=== PATIENT | male | born 1960 | race Caucasian/White ===

== ENCOUNTER → 2021-12-15 13:20 | Outpatient (BNVA) | payer BC, SELFPAY | PROVIDERS: PCP Pediatrics; Visit Provider Urology | DX: E11.69 Type 2 diabetes mellitus with other specified complication (principal); N52.1 Erectile dysfunction due to diseases classified elsewhere; N20.0 Calculus of kidney | CPT/HCPCS: 51798 ==

== ENCOUNTER 2022-06-03 13:58 | Outpatient (REF) | payer BC, SELFPAY ==
--- NOTE | ~2022-06-03 | US_ITS ---
EXAMINATION: US RETROPERITONEAL LIMITED (RENAL ONLY) CLINICAL INFORMATION: Calculus of kidney. COMPARISON: None TECHNIQUE: Real-time imaging of the kidneys. FINDINGS: RIGHT KIDNEY: 14.3 x 6.2 x 7.1 cm (SAG x AP x TRV). The kidney is normal in size, contour, and echogenicity. Renal cortical thickness is normal. No calculi or focal parenchymal lesions. No hydronephrosis. LEFT KIDNEY: 14.8 x 6.2 x 6.8 cm (SAG x AP x TRV). The kidney is normal in size, contour, and echogenicity. Renal cortical thickness is normal. No calculi or focal parenchymal lesions. No hydronephrosis. US/US renal BI IMPRESSION: Normal renal ultrasound.
== END 2022-06-03 13:59 | disposition home or self-care (01) ==
LOC: HO.HMGCX 13:58
PROVIDERS: Visit Provider Urology
DX: N20.0 Calculus of kidney (principal)
CPT/HCPCS: 76775

== ENCOUNTER 2023-07-28 16:32 | Outpatient (REF) | payer BC, SELFPAY ==
--- NOTE | ~2023-07-28 | US_ITS ---
EXAMINATION: US RETROPERITONEAL LIMITED (RENAL ONLY) CLINICAL INFORMATION: Renal stones. COMPARISON: Renal ultrasound 06/03/2022 TECHNIQUE: Real-time imaging of the kidneys. FINDINGS: RIGHT KIDNEY: 13.7 x 5.6 x 6.1 cm (SAG x AP x TRV). The kidney is normal in size, contour, and echogenicity. Renal cortical thickness is normal. No calculi or focal parenchymal lesions. No hydronephrosis. LEFT KIDNEY: 13.7 x 6.2 x 6.1 cm (SAG x AP x TRV). The kidney is normal in size, contour, and echogenicity. Renal cortical thickness is normal. No calculi or focal parenchymal lesions. No hydronephrosis. US/US renal BI IMPRESSION: Normal renal ultrasound. No visible nephrolithiasis. No hydronephrosis.
== END 2023-07-28 16:33 | disposition home or self-care (01) ==
LOC: HO.US 16:32
PROVIDERS: PCP Internal Medicine; Visit Provider Urology
DX: N20.0 Calculus of kidney (principal)
CPT/HCPCS: 76775

== ENCOUNTER 2023-08-22 14:11 | Outpatient (REF) | payer BC, SELFPAY ==
[2023-08-22 16:49] LABS: Appearance Urine Turbid; Color Urine Yellow; Glucose Urine UA Negative (Negative); Leukocyte Esterase Urine Negative (Negative); Nitrite Urine Negative (Negative); Urine Blood Negative (Negative); Urine Ketones Trace mg/dL (Negative); Urine Protein Negative (Neg-Trace)
[2023-08-22 16:55] LABS: Bacteria Urine None Seen (None Seen); Hyaline Casts Urine 0-2 /LPF (0-2); RBC Urine 0-2 /HPF (0-2); Squamous Epithelial Cell Urine 0-2 /HPF (0-2); WBC Urine 0-5 /HPF (0-5)
== END 2023-08-22 14:12 | disposition home or self-care (01) ==
LOC: HO.HMGCLDS 14:11
PROVIDERS: PCP Internal Medicine; Visit Provider Urology
DX: N20.0 Calculus of kidney (principal)
CPT/HCPCS: 81001; 87086

== ENCOUNTER 2023-11-03 15:45 | Outpatient (AMB) | payer BC, SELFPAY ==
--- NOTE | 2023-11-03 15:46 | A.OFFVIS_ITS ---
Intake Intake Visit Reasons: US/PSA Follow Up([place] ) Intake Note: Patient presents today for a follow-up Meds- Tadalafil Allergies to Antibiotic- No Known Allergies Blood Thinner- None Medical Concierge Required: No Allergies No Known Allergies [No Known Allergies*] Allergy (Verified 11/03/23 15:47) Medication List - Last Reconciled 11/03/23 by Martin Mckenzie MD blood sugar diagnostic ([place] [employer] Ultra Test strips) As directed dulaglutide (Trulicity) mg subcut lisinopril 10 mg PO DAILY multivitamin (Multiple Vitamins tablet) 1 tab PO QAM pravastatin 20 mg PO DAILY tadalafil (Cialis) 5 mg PO DAILY 90 days HPI HPI Comments History of Present Illness Details Colt ALBA is a very pleasant male. They are a patient of Dr Martin?. They are seen in the office today for the following urologic conditions. - nephrolithiasis - erectile dysfunction Telemedicine Evaluation 15 min Consultation [place] [facility] Video attempted Ultrasound shows no stones Does have reasonable response to Cialis 5 mg for urinating Is noticing some postvoid dribbling and hesitancy at the end of urination Should this progress may need addition of alpha-jagdeep ?He has a complicated medical history. ?March 2013 underwent left hydrocele repair. Bladder was inadvertently incised. Spent the next 6-8 weeks with infection and bladder repair. Left inguinal hernia repair. Erectile dysfunction Responsive to 5 mg daily tadalafil Nephrolithiasis/Urolithiasis:? They are here for?further evaluation of nephrolithiasis.? Urolithiasis was diagnosed?02/05/18 - seen [place] [facility] [place] flank pain and heamturia - imaging had passed small stone.? The patient previously had kidney stones whose composition w?unknown ? 24 Hour urine evaluation?03/28 , Good Volume > 2.00 L, Hypercalciuria (> 200mg), High Sodium (> 100mEq), High oxalate > 30mg, High Citrate, Low urine pH < 5.5 ?03/29 , Good Volume > 2.00 L, high calcium and high oxalate - drinking iced tea ? Prior treatment(s) include?observation.? Prior imaging includes?01/26 , a CT (computed tomography) scan of the abdomen/pelvis (stone protocol), showing no evidence of stones - recent passage ?03/28 , a renal ultrasound, showing no evidence of stones - 07/02 renal ultrasound no stones, 08/03 no stones ? Current therapeutic plan will be?Multiple urinary abnormalities ?, to continue with imaging surveillance, ?General advice to maintain good fluid intake for urine greater than 1.5 L per day, reduce salt and reduce protein and acid loads was provided [facility] Medical History High cholesterol HTN (hypertension) Diabetes mellitus Erectile dysfunction due to diseases classified elsewhere Hypercalciuria Incomplete emptying of bladder Retrograde ejaculation Nontraumatic rupture of bladder Ureteral reimplantation hemorrhage Hydrocele in adult Hematuria Surgical History History of surgery Review of Systems Const All systems reviewed & are unremarkable except as noted in HPI and below Reports no additional complaints Resp Reports no additional complaints GI Reports no additional complaints Reports as per HPI Musc Reports no additional complaints Physical Exam Telemedicine evaluation Appropriate responses Regular breathing rate and rhythm HEENT Head: Yes normal to inspection Ears: hearing grossly normal bilaterally Eyes General: appearance normal, both eyes and all related structures Neck Neck: Yes normal visual inspection Chest Chest palpation & inspection: normal inspection of the chest Resp Effort & Inspection: normal respiratory effort and able to speak in complete sentences Assessment & Plan Assessment & Plan (1) Bladder outlet obstruction: Code(s): N32.0 - Bladder-neck obstruction (2) Erectile dysfunction associated with type 2 diabetes mellitus: Code(s): E11.69 - Type 2 diabetes mellitus with other specified complication; N52.1 - Erectile dysfunction due to diseases classified elsewhere Plan Six-month follow-up PVR Patient Instructions: Imaging studies, laboratory and physical exam results were discussed and reviewed in detail. No major barriers to patient understanding were identified. An opportunity to ask questions regarding the treatment plan was provided. All questions were answered. The patient expressed understanding and agreement with the above treatment plan. The patient is aware they should contact our office by phone for worsening of their current condition or the appearance of new urologic symptoms. Compliance is encouraged with any medications and followup testing that is ordered. It is a privilege to participate in the urologic care of your patient. If you have any questions or concerns regarding treatment for the above conditions, or other urologic issues, please do not hesitate to contact me. The office telephone contact is [phone]. This note is constructed using voice recognition software. While every effort has been made to ensure accuracy psychologist personnel errors may have been included. Yours sincerely, Dr Martin Mckenzie MD, [facility] - Urology Providers of Expert, Compassionate Care for the Genitourinary System Telehealth Telehealth Location of provider rendering services: practice address Location of patient: address on file Patient Identification confirmed using: Name, : Yes Telehealth method: video Patient verbally consented to treatment: Yes Patient verbally consented to billing insurance company: Yes Patient informed of any privacy concerns related to visit: Yes Coding Level of Care Code Tele Est Pt Level 3 (47057) Diagnoses Bladder outlet obstruction N32.0 Erectile dysfunction associated with type 2 diabetes mellitus E11.69; N52.1
== END 2023-11-03 16:04 | disposition home or self-care (01) ==
LOC: HO.HUSH 15:45
PROVIDERS: PCP Internal Medicine; Visit Provider Urology
DX: N32.0 Bladder-neck obstruction (principal); E11.69 Type 2 diabetes mellitus with other specified complication; N52.1 Erectile dysfunction due to diseases classified elsewhere
CPT/HCPCS: 99213

== ENCOUNTER → 2023-11-03 15:45 | Outpatient (BNVA) | payer BC, SELFPAY | PROVIDERS: PCP Internal Medicine; Visit Provider Urology ==

== ENCOUNTER 2024-05-03 14:33 | Outpatient (AMB) | payer BC, SELFPAY ==
--- NOTE | 2024-05-03 14:35 | A.OFFVIS_ITS ---
Intake Visit Reasons: 6M Follow Up-PVR Intake Note: Patient presents today for a 6m follow-up pvr Meds- Tadalafil Allergies to Antibiotic- No Known Allergies Blood Thinner- None today's pvr:0ml's New Car Inspector Required: No Allergies No Known Allergies [No Known Allergies*] Allergy (Verified 05/03/24 14:35) Medication List - Last Reconciled 05/03/24 by Martin Mckenzie MD alfuzosin ER 10 mg PO BEDTIME 30 days blood sugar diagnostic ([employer] Ultra Test strips) As directed dulaglutide (Trulicity) mg subcut lisinopril 10 mg PO DAILY multivitamin (Multiple Vitamins tablet) 1 tab PO QAM pravastatin 20 mg PO DAILY tadalafil (Cialis) 5 mg PO DAILY 90 days HPI Comments Details: Colt ALBA is a very pleasant male. They are a patient of Dr Martin?. They are seen in the office today for the following urologic conditions. - nephrolithiasis - erectile dysfunction Six-month follow-up Does have reasonable response to Cialis 5 mg for urinating Is noticing some postvoid dribbling and hesitancy at the end of urination Reporting urinary hesitancy with weakness of stream Trial alfuzosin ?He has a complicated medical history. ?March 2013 underwent left hydrocele repair. Bladder was inadvertently incised. Spent the next 6-8 weeks with infection and bladder repair. Left inguinal hernia repair. Erectile dysfunction Responsive to 5 mg daily tadalafil Nephrolithiasis/Urolithiasis:? They are here for?further evaluation of nephrolithiasis.? Urolithiasis was diagnosed?02/05/18 - seen at [facility] [place] with left flank pain and heamturia - imaging had passed small stone.? The patient previously had kidney stones whose composition w?unknown ? 24 Hour urine evaluation?03/28 , Good Volume > 2.00 L, Hypercalciuria (> 200mg), High Sodium (> 100mEq), High oxalate > 30mg, High Citrate, Low urine pH < 5.5 ?03/29 , Good Volume > 2.00 L, high calcium and high oxalate - drinking iced tea ? Prior treatment(s) include?observation.? Prior imaging includes?01/26 , a CT (computed tomography) scan of the abdomen/pelvis (stone protocol), showing no evidence of stones - recent passage ?03/28 , a renal ultrasound, showing no evidence of stones - 07/02 renal ultrasound no stones, 08/03 no stones ? Current therapeutic plan will be?Multiple urinary abnormalities ?, to continue with imaging surveillance, ?General advice to maintain good fluid intake for urine greater than 1.5 L per day, reduce salt and reduce protein and acid loads was provided [facility] Medical History High cholesterol HTN (hypertension) Diabetes mellitus Erectile dysfunction due to diseases classified elsewhere Hypercalciuria Incomplete emptying of bladder Retrograde ejaculation Nontraumatic rupture of bladder Ureteral reimplantation hemorrhage Hydrocele in adult Hematuria Surgical History History of surgery Review of Systems Const Denies chills and Denies fever(s) Card Reports no additional complaints and Denies syncope Resp Denies cough GI Denies abdominal pain and Denies heartburn Reports as per HPI and Denies change in libido Neuro Denies syncope Psych Denies change in libido Endo Denies change in libido Physical Exam Const General: cooperative, healthy appearing, comfortable and no acute distress Orientation/consciousness: patient oriented x3 HEENT Face and sinus: Yes normal facial exam Mouth: moist mucous membranes Neck Neck: Yes normal visual inspection, Yes full ROM and Yes trachea midline Chest Chest palpation & inspection: normal inspection of the chest Resp Effort & Inspection: normal respiratory effort, able to speak in complete sentences and no respiratory distress GI Inspection: Yes normal to inspection Back/Spine/Pelvis Cervical Spine: normal cervical lordosis Thoracic/Lumbar Spine: thoracic and lumbar spine normal to inspection Skin General skin exam: no rashes or lesions noted Neuro General: patient oriented x3, gait normal, tone normal and moves all extremities Extrem General: Yes normal to inspection and Yes capillary refill normal Office Procedures Post Void Residual Post Residual Void Post Void Residual (PVR): 0 12665-Ftad Void Residual by ultrasound Results AMB Urinalysis, Automated UA Leukoctes 0 Billie/uL Last Edit by ELIZABET Motta on 05/03/24 14:48 UA Nitrite Negative Last Edit by Ele Diane [facility] on 05/03/24 14:48 UA Urobilinogen 0.2 mg/dL Last Edit by Ele Diane [facility] on 05/03/24 14:4 8 UA Protein 0 mg/dL Last Edit by Ele Diane [facility] on 05/03/24 14:48 UA pH 5.0 Last Edit by Ele Diane [facility] on 05/03/24 14:48 UA Blood 0 Mark/uL Last Edit by Ele Diane [facility] on 05/03/24 14:48 UA Specific [place] 1.025 Last Edit by Ele Diane [facility] on 05/03/24 14: 48 UA Ketone Negative Last Edit by ELIZABET Motta on 05/03/24 14:48 UA Bilirubin 0 mg/dL Last Edit by Ele Diane [facility] on 05/03/24 14:48 UA Glucose 0 mg/dL Last Edit by Ele Diane [facility] on 05/03/24 14:48 Results Reviewed Results Reviewed: Laboratory Last Values Urine pH (Auto) 5.0 05/03/24 14:47 Specific [place] (Auto) 1.025 05/03/24 14:47 Urine Protein (Auto) 0 mg/dL 05/03/24 14:47 Glucose (UA)(Auto) 0 mg/dL 05/03/24 14:47 Urine Ketones (Auto) Negative 05/03/24 14:47 Urine Blood (Auto) 0 Mark/uL 05/03/24 14:47 Urine Nitrite (Auto) Negative 05/03/24 14:47 Urine Bilirubin (Auto) 0 mg/dL 05/03/24 14:47 Urine Urobilinogen (Auto) 0.2 mg/dL 05/03/24 14:47 Leukocyte Esterase (Auto) 0 Billie/uL 05/03/24 14:47 Assessment & Plan Assessment & Plan (1) Bladder outlet obstruction: Code(s): N32.0 - Bladder-neck obstruction Category: Medical (2) Erectile dysfunction associated with type 2 diabetes mellitus: Code(s): E11.69 - Type 2 diabetes mellitus with other specified complication; N52.1 - Erectile dysfunction due to diseases classified elsewhere Category: Medical (3) Nephrolithiasis: Code(s): N20.0 - Calculus of kidney Category: Medical Plan Two month follow-up tele Trial alfuzosin Orders: Orders AMB Urinalysis Automated Today Z13.9 - Encounter for screening, unspecified Medications: New alfuzosin ER Take before bedtime 10 mg PO BEDTIME 30 days 30 tabs 1RF N32.0 - Bladder- neck obstruction, N40.1 - Benign prostatic hyperplasia with lower urinary tract symptoms, R33.9 - Retention of urine, unspecified, R35.1 - Nocturia, R39.12 - Poor urinary stream Patient Instructions: Imaging studies, laboratory and physical exam results were discussed and reviewed in detail. No major barriers to patient understanding were identified. An opportunity to ask questions regarding the treatment plan was provided. All questions were answered. The patient expressed understanding and agreement with the above treatment plan. The patient is aware they should contact our office by phone for worsening of their current condition or the appearance of new urologic symptoms. Compliance is encouraged with any medications and followup testing that is ordered. It is a privilege to participate in the urologic care of your patient. If you have any questions or concerns regarding treatment for the above conditions, or other urologic issues, please do not hesitate to contact me. The office telephone contact is [phone]. This note is constructed using voice recognition software. While every effort has been made to ensure accuracy microelectronics engineer errors may have been included. Yours sincerely, Dr Martin Mckenzie MD, [facility] - Urology Providers of Expert, Compassionate Care for the Genitourinary System Coding Level of Care Code Est Pt Level 4 (27046) Diagnoses Bladder outlet obstruction N32.0 Erectile dysfunction associated with type 2 diabetes mellitus E11.69; N52.1 Nephrolithiasis N20.0 CPT Codes Post Residual Void - PVR CPT Code: 53105-Iewi Void Residual by ultrasound ([id number])
== END 2024-05-03 15:11 | disposition home or self-care (01) ==
PROVIDERS: PCP Internal Medicine; Visit Provider Urology
DX: N32.0 Bladder-neck obstruction (principal); E11.69 Type 2 diabetes mellitus with other specified complication; N52.1 Erectile dysfunction due to diseases classified elsewhere; N20.0 Calculus of kidney; Z13.9 Encounter for screening, unspecified
CPT/HCPCS: 99214

== ENCOUNTER → 2024-05-03 14:33 | Outpatient (BNVA) | payer BC, SELFPAY | PROVIDERS: PCP Internal Medicine; Visit Provider Urology | DX: N32.0 Bladder-neck obstruction (principal); E11.69 Type 2 diabetes mellitus with other specified complication; N52.1 Erectile dysfunction due to diseases classified elsewhere; N20.0 Calculus of kidney | CPT/HCPCS: 51798; 81003 ==

== ENCOUNTER 2024-07-05 10:30 | Outpatient (AMB) | payer BC, SELFPAY ==
--- NOTE | 2024-07-05 10:34 | A.OFFVIS_ITS ---
Intake Visit Reasons: 2M Med review(alfuzosin) Intake Note: Patient is present for Med review Telephone follow up Urology Med: Alfuzosin, Tadalafil Antibiotic Allergy: None Blood Thinner: None Last PVR: 0ML Patient would like to discuss the medication Alfuzosin has started medications since prescribed last time Bushing Press Operator Required: No Accompanied by: Self / Same As Patient Allergies No Known Allergies [No Known Allergies*] Allergy (Verified 07/05/24 10:35) HPI Comments Details: Colt ALBA is a very pleasant male. They are a patient of Dr Martin?. They are seen in the office today for the following urologic conditions. - nephrolithiasis - erectile dysfunction - lower urinary tract symptoms Telemedicine Evaluation 15 min Consultation [employer] Sonu Video Two month follow-up trial alfuzosin Had reported some urinary hesitancy Reasonable prior response to Cialis 5 mg for stability Telemedicine Evaluation 15 min Consultation [employer] Sonu Video ?He has a complicated medical history. ?March 2013 underwent left hydrocele repair. Bladder was inadvertently incised. Spent the next 6-8 weeks with infection and bladder repair. Left inguinal hernia repair Lower urinary tract symptoms Urinary hesitancy with dribbling Erectile dysfunction Responsive to 5 mg daily tadalafil Nephrolithiasis/Urolithiasis:? They are here for?further evaluation of nephrolithiasis.? Urolithiasis was diagnosed?02/05/18 - seen at [facility] [place] with left flank pain and heamturia - imaging had passed small stone.? The patient previously had kidney stones whose composition w?unknown ? 24 Hour urine evaluation?03/28 , Good Volume > 2.00 L, Hypercalciuria (> 200mg), High Sodium (> 100mEq), High oxalate > 30mg, High Citrate, Low urine pH < 5.5 ?03/29 , Good Volume > 2.00 L, high calcium and high oxalate - drinking iced tea ? Prior treatment(s) include?observation.? Prior imaging includes?01/26 , a CT (computed tomography) scan of the abdomen/pelvis (stone protocol), showing no evidence of stones - recent passage ?03/28 , a renal ultrasound, showing no evidence of stones - 07/02 renal ultrasound no stones, 08/03 no stones ? Current therapeutic plan will be?Multiple urinary abnormalities ?, to continue with imaging surveillance, ?General advice to maintain good fluid intake for urine greater than 1.5 L per day, reduce salt and reduce protein and acid loads was provided [facility] Medical History High cholesterol HTN (hypertension) Diabetes mellitus Erectile dysfunction due to diseases classified elsewhere Hypercalciuria Incomplete emptying of bladder Retrograde ejaculation Nontraumatic rupture of bladder Ureteral reimplantation hemorrhage Hydrocele in adult Hematuria Surgical History History of surgery Review of Systems Const All systems reviewed & are unremarkable except as noted in HPI and below Reports no additional complaints Resp Reports no additional complaints GI Reports no additional complaints Reports as per HPI Musc Reports no additional complaints Physical Exam Telemedicine evaluation Appropriate responses Regular breathing rate and rhythm HEENT Head: Yes normal to inspection Ears: hearing grossly normal bilaterally Eyes General: appearance normal, both eyes and all related structures Neck Neck: Yes normal visual inspection Chest Chest palpation & inspection: normal inspection of the chest Resp Effort & Inspection: normal respiratory effort and able to speak in complete sentences Telehealth Telehealth Location of provider rendering services: practice address Location of patient: address on file Patient Identification confirmed using: Name, : Yes Telehealth method: video Patient verbally consented to treatment: Yes Patient verbally consented to billing insurance company: Yes Patient informed of any privacy concerns related to visit: Yes Assessment & Plan Assessment & Plan (1) Bladder instability: Code(s): N32.89 - Other specified disorders of bladder Category: Medical (2) Erectile dysfunction associated with type 2 diabetes mellitus: Code(s): E11.69 - Type 2 diabetes mellitus with other specified complication; N52.1 - Erectile dysfunction due to diseases classified elsewhere Category: Medical (3) Bladder outlet obstruction: Code(s): N32.0 - Bladder-neck obstruction Category: Medical Plan Two month follow-up tele Medications: New tolterodine ER 2 mg PO DAILY 30 days 30 caps 1RF N32.89 - Other specified disorders of bladder, R39.15 - Urgency of urination Patient Instructions: Imaging studies, laboratory and physical exam results were discussed and reviewed in detail. No major barriers to patient understanding were identified. An opportunity to ask questions regarding the treatment plan was provided. All questions were answered. The patient expressed understanding and agreement with the above treatment plan. The patient is aware they should contact our office by phone for worsening of their current condition or the appearance of new urologic symptoms. Compliance is encouraged with any medications and followup testing that is ordered. It is a privilege to participate in the urologic care of your patient. If you have any questions or concerns regarding treatment for the above conditions, or other urologic issues, please do not hesitate to contact me. The office telephone contact is [phone]. This note is constructed using voice recognition software. While every effort has been made to ensure accuracy foot piece assembler errors may have been included. Yours sincerely, Dr Martin Mckenzie MD, [facility] - Urology Providers of Expert, Compassionate Care for the Genitourinary System Coding Level of Care Code Tele Est Pt Level 4 (54635) Diagnoses Bladder instability N32.89 Erectile dysfunction associated with type 2 diabetes mellitus E11.69; N52.1 Bladder outlet obstruction N32.0
== END 2024-07-05 11:34 | disposition home or self-care (01) ==
LOC: HO.HUSH 10:30
PROVIDERS: PCP Internal Medicine; Visit Provider Urology
DX: N32.89 Other specified disorders of bladder (principal); E11.69 Type 2 diabetes mellitus with other specified complication; N52.1 Erectile dysfunction due to diseases classified elsewhere; N32.0 Bladder-neck obstruction
CPT/HCPCS: 99214

== ENCOUNTER → 2024-07-05 10:30 | Outpatient (BNVA) | payer BC, SELFPAY | PROVIDERS: PCP Internal Medicine; Visit Provider Urology ==

== ENCOUNTER 2024-09-03 13:35 | Outpatient (AMB) | payer BC, SELFPAY ==
--- NOTE | 2024-09-03 13:35 | MHC.OFFVIS ---
Intake Visit Reasons: 2M Med Review(tolterodine) Intake Note: Patient is present for 2M MED REVIEW Urology Medication:TADALAFIL,TOLTERODINE Antibiotic Allergy:NONE Blood Thinner:NONE Quantitative Manager Required: No Allergies No Known Allergies [No Known Allergies*] Allergy (Verified 09/03/24 13:36) HPI Comments Details: Colt ALBA is a very pleasant male. They are a patient of Dr Lopez. They are seen in the office today for the following urologic conditions. - nephrolithiasis - erectile dysfunction - lower urinary tract symptoms Telemedicine Evaluation 15 min Consultation [employer] Video Two month follow-up trial tolterodine for bladder stability - mild benefit - Will trial with high-dose Toviaz Reasonable prior response to Cialis 5 mg for stability ?He has a complicated medical history. ?March 2013 underwent left hydrocele repair. Bladder was inadvertently incised. Spent the next 6-8 weeks with infection and bladder repair. Left inguinal hernia repair Lower urinary tract symptoms Urinary hesitancy with dribbling Component of bladder instability with urinary urgency and frequency Erectile dysfunction Responsive to 5 mg daily tadalafil Nephrolithiasis/Urolithiasis:? They are here for?further evaluation of nephrolithiasis.? Urolithiasis was diagnosed?02/05/18 [place] [facility] [place] and heamturia - imaging had passed small stone.? The patient previously had kidney stones whose composition w?unknown ? 24 Hour urine evaluation?03/28 , Good Volume > 2.00 L, Hypercalciuria (> 200mg), High Sodium (> 100mEq), High oxalate > 30mg, High Citrate, Low urine pH < 5.5 ?03/29 , Good Volume > 2.00 L, high calcium and high oxalate - drinking iced tea ? Prior treatment(s) include?observation.? Prior imaging includes?01/26 , a CT (computed tomography) scan of the abdomen/pelvis (stone protocol), showing no evidence of stones - recent passage ?03/28 , a renal ultrasound, showing no evidence of stones - 07/02 renal ultrasound no stones, 08/03 no stones ? Current therapeutic plan will be?Multiple urinary abnormalities ?, to continue with imaging surveillance, ?General advice to maintain good fluid intake for urine greater than 1.5 L per day, reduce salt and reduce protein and acid loads was provided [facility] Medical History High cholesterol HTN (hypertension) Diabetes mellitus Erectile dysfunction due to diseases classified elsewhere Hypercalciuria Incomplete emptying of bladder Retrograde ejaculation Nontraumatic rupture of bladder Ureteral reimplantation hemorrhage Hydrocele in adult Hematuria Surgical History History of surgery Review of Systems Const All systems reviewed & are unremarkable except as noted in HPI and below Reports no additional complaints Resp Reports no additional complaints GI Reports no additional complaints Reports as per HPI Musc Reports no additional complaints Physical Exam Telemedicine evaluation Appropriate responses Regular breathing rate and rhythm HEENT Head: Yes normal to inspection Ears: hearing grossly normal bilaterally Eyes General: appearance normal, both eyes and all related structures Neck Neck: Yes normal visual inspection Chest Chest palpation & inspection: normal inspection of the chest Resp Effort & Inspection: normal respiratory effort and able to speak in complete sentences Telehealth Telehealth Telehealth Platform: [employer] [facility] Location of provider rendering services: practice address Location of patient: address on file Patient Identification confirmed using: Name, : Yes Telehealth method: video Patient verbally consented to treatment: Yes Patient verbally consented to billing insurance company: Yes Patient informed of any privacy concerns related to visit: Yes Minutes spent on Phone/Video with Pt.: 15 Assessment & Plan Assessment & Plan (1) Nephrolithiasis: Code(s): N20.0 - Calculus of kidney Category: Medical (2) Erectile dysfunction associated with type 2 diabetes mellitus: Code(s): E11.69 - Type 2 diabetes mellitus with other specified complication; N52.1 - Erectile dysfunction due to diseases classified elsewhere Category: Medical (3) Bladder instability: Code(s): N32.89 - Other specified disorders of bladder Category: Medical Plan Trial 8 mg Toviaz Medications: Changed From tolterodine ER 2 mg PO DAILY 30 days 30 caps 1RF To fesoterodine ER 8 mg PO DAILY 30 days 30 tabs 1RF Patient Instructions: Imaging studies, laboratory and physical exam results were discussed and reviewed in detail. No major barriers to patient understanding were identified. An opportunity to ask questions regarding the treatment plan was provided. All questions were answered. The patient expressed understanding and agreement with the above treatment plan. The patient is aware they should contact our office by phone for worsening of their current condition or the appearance of new urologic symptoms. Compliance is encouraged with any medications and followup testing that is ordered. It is a privilege to participate in the urologic care of your patient. If you have any questions or concerns regarding treatment for the above conditions, or other urologic issues, please do not hesitate to contact me. The office telephone contact is [phone]. This note is constructed using voice recognition software. While every effort has been made to ensure accuracy game developer errors may have been included. Yours sincerely, Dr Martin Mckenzie MD, [facility] - Urology Providers of Expert, Compassionate Care for the Genitourinary System Coding Level of Care Code Tele Est Pt Level 4 (32938) Diagnoses Nephrolithiasis N20.0 Erectile dysfunction associated with type 2 diabetes mellitus E11.69; N52.1 Bladder instability N32.89
--- OUTSIDE RECORDS SUMMARY | 2024-09-03 13:37 | XMS_ITS ---
Author Organization [facility] Address [address] [place] [address] Care Team Providers Care Grain Elevator Superintendent Name Role Phone CRISTIN RAMIREZ Unavailable SHUKRI KAT Unavailable [phone] Encounters Encounter Location Date Provider Diagnosis [facility] [address] [place] [address] 11/10/2023 SHUKRI KAT PLAN OF TREATMENT No Information Progress Notes * Guy ALBAGabrielOB:1960 ([age] yo M)Acc No.[id number]:11/10/2023 Patient:??Colt ALBA Provider:??SHUKRI KAT PA-C :1960?Age:63 Y?Sex:Toby jose Date:11/10/2023 Address:[address] [place], [place] [id number] Subjective: * Chief Complaints: * ? * Medical History:?? Objective: Assessment: Plan: * Treatment: * Images: Billing Information: * Visit Code:?? * Procedure Codes:?? * Sign off status: Pending * Provider:??SHUKRI KAT PA-C Date:??0309/2023
--- OUTSIDE RECORDS SUMMARY | 2024-09-03 13:37 | XMS_ITS ---
Author Organization [facility] Address [address] [place] [address] Care Team Providers Care Lighting Director Name Role Phone CRISTIN RAMIREZ Unavailable [phone] SHUKRI KAT Unavailable [phone] Encounters Encounter Location Date Provider Diagnosis [facility] [address] [place] [address] 02/23/2024 SHUKRI KAT PLAN OF TREATMENT No Information Progress Notes * Guy ALBAGabrielOB:1960 ([age] yo M)Acc No.[id number]:02/23/2024 Patient:??Colt ALBA Provider:??SHUKRI KAT PA-C :1960?Age:63 Y?Sex:Toby jose Date:02/23/2024 Address:[address] [place], [place] [id number] Subjective: * Chief Complaints: * ? * Medical History:?? Objective: Assessment: Plan: * Treatment: * Images: Billing Information: * Visit Code:?? * Procedure Codes:?? * Sign off status: Pending * Provider:??SHUKRI KAT PA-C Date:??02/09
--- OUTSIDE RECORDS SUMMARY | 2024-09-03 13:37 | XMS_ITS ---
Author Organization [facility] Address [address] [place] [address] Care Team Providers Care Tablet Repair Name Role Phone AUSTYN DESTINEY CRISTIN Unavailable [phone] SHUKRI KAT Unavailable [phone] ALLERGIES No Known Allergies REASON FOR VISIT Pt presents for wt mgt follow up, pt has gained weight MEDICATIONS Medication SIG (Take, Route, Frequency, Duration) Notes Start Date End Date Status Lisinopril 10 MG Oral for 90 Days Active Pravastatin Sodium 20 MG Oral for 90 Days Active Tadalafil 5 MG TAKE ONE TABLET BY M OUTH EVERY DAY Oral for 90 Days PRN Activ e Mounjaro 5 MG/0.5ML as directed Subcutan eous weekly Active Fish Oil Active Vitamin D3 50 MCG (1999) 2 tablets Orally Once a day Active Probiotic 250 MG as directed Orally Active SOCIAL HISTORY Tobacco Use: Social History Observation Description Date Details (start date - stop date) Current Smoker NA - NA Sex Assigned At : Social History Observation Description Sex Assigned At Unknown Tobacco Use/Smoking Question Answer Notes Are you a current smoker How often do you smoke cigarettes? every day How many cigarettes a day do you smoke? 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 [address] [place] [address] 12/22/2023 SHUKRI KAT Obesity (BMI 30-39.9 ) E66.9 ; BMI 36.0-36.9,adult Z68.36 ; Hypertension, essential I10 ; Type 2 diabetes mellitus without complications E11.9 and Umbilical hernia without mention of obstruction or gangrene K42.9 ASSESSMENTS Encounter Date Diagnosis Assessment Notes Treatment Notes Treatment Clinical Notes Section Notes 12/22/2023 Obesity (BMI 30-39.9) (ICD-10 - E66.9) Jesus is a 63-year-old male who presents the office for weight management follow-up. 09/23/2023: Weight 266, BMI 37.1 01/21/24: Weight 263, BMI 36.68. Losing some weight, following with his PCP for diabetes, we recommend he switch from Trulicity to Mounjaro, he did so, but preferred that his primary care prescribed medication. Primary care does prescribe the medication 5 mg, although patient has finished 4 weeks, he has a 3-month supply. Would like to see his back in 2 months. Discussed extensively lifestyle modifications including sleep, stress, hormones, exercise, nutrition. Patient states that he is trying to work on cutting sugars, but exercise is limited because of his neuropathy/arthritis . Discussed swimming, Pilates, yoga, stretching, patient states that he is not going to be doing this. Patient request follow-up in 2 months, we will see him then, sooner as needed. Continue following with PCP for care all quetsions answered to patients satisfaction. Patient verbalized understanding of diagnosis and treatments explained. To call sooner prior to next visit it any questions/concerns arise. Time 7 patient 30 minutes with greater than 50% of patient education and care coronation Case discussed with collaborating physician Mack Aguirre who reviewed the assessment and plan. Chart, medications, labs, vital signs reviewed. Dictation was accomplished with the use of [employer] voice recognition software, prone to medical misidentifications and grammatical errors. This is unintentional and the practitioner does try to identify and correct these, but some could still be present. Please do not hesitate to contact practitioner for clarification. 12/22/2023 BMI 36.0-36.9,adult (ICD-10 - Z68.36) Jesus is a 63-year-old male who presents the office for weight management follow-up. 09/23/2023: Weight 266, BMI 37.1 01/21/24: Weight 263, BMI 36.68. Losing some weight, following with his PCP for diabetes, we recommend he switch from Trulicity to Mounjaro, he did so, but preferred that his primary care prescribed medication. Primary care does prescribe the medication 5 mg, although patient has finished 4 weeks, he has a 3-month supply. Would like to see his back in 2 months. Discussed extensively lifestyle modifications including sleep, stress, hormones, exercise, nutrition. Patient states that he is trying to work on cutting sugars, but exercise is limited because of his neuropathy/arthritis . Discussed swimming, Pilates, yoga, stretching, patient states that he is not going to be doing this. Patient request follow-up in 2 months, we will see him then, sooner as needed. Continue following with PCP for care all quetsions answered to patients satisfaction. Patient verbalized understanding of diagnosis and treatments explained. To call sooner prior to next visit it any questions/concerns arise. Time 7 patient 30 minutes with greater than 50% of patient education and care coronation Case discussed with collaborating physician Mack Aguirre who reviewed the assessment and plan. Chart, medications, labs, vital signs reviewed. Dictation was accomplished with the use of [employer] voice recognition software, prone to medical misidentifications and grammatical errors. This is unintentional and the practitioner does try to identify and correct these, but some could still be present. Please do not hesitate to contact practitioner for clarification. 12/22/2023 Hypertension, essential (ICD-10 - I10) Jesus is a 63-year-old male who presents the office for weight management follow-up. 09/23/2023: Weight 266, BMI 37.1 01/21/24: Weight 263, BMI 36.68. Losing some weight, following with his PCP for diabetes, we recommend he switch from Trulicity to Mounjaro, he did so, but preferred that his primary care prescribed medication. Primary care does prescribe the medication 5 mg, although patient has finished 4 weeks, he has a 3-month supply. Would like to see his back in 2 months. Discussed extensively lifestyle modifications including sleep, stress, hormones, exercise, nutrition. Patient states that he is trying to work on cutting sugars, but exercise is limited because of his neuropathy/arthritis . Discussed swimming, Pilates, yoga, stretching, patient states that he is not going to be doing this. Patient request follow-up in 2 months, we will see him then, sooner as needed. Continue following with PCP for care all quetsions answered to patients satisfaction. Patient verbalized understanding of diagnosis and treatments explained. To call sooner prior to next visit it any questions/concerns arise. Time 7 patient 30 minutes with greater than 50% of patient education and care coronation Case discussed with collaborating physician Mack Aguirre who reviewed the assessment and plan. Chart, medications, labs, vital signs reviewed. Dictation was accomplished with the use of [employer] voice recognition software, prone to medical misidentifications and grammatical errors. This is unintentional and the practitioner does try to identify and correct these, but some could still be present. Please do not hesitate to contact practitioner for clarification. 12/22/2023 Type 2 diabetes mellitus without complications (ICD-10 - E11.9) Jesus is a 63-year-old male who presents the office for weight management follow-up. 09/23/2023: Weight 266, BMI 37.1 01/21/24: Weight 263, BMI 36.68. Losing some weight, following with his PCP for diabetes, we recommend he switch from Trulicity to Mounjaro, he did so, but preferred that his primary care prescribed medication. Primary care does prescribe the medication 5 mg, although patient has finished 4 weeks, he has a 3-month supply. Would like to see his back in 2 months. Discussed extensively lifestyle modifications including sleep, stress, hormones, exercise, nutrition. Patient states that he is trying to work on cutting sugars, but exercise is limited because of his neuropathy/arthritis . Discussed swimming, Pilates, yoga, stretching, patient states that he is not going to be doing this. Patient request follow-up in 2 months, we will see him then, sooner as needed. Continue following with PCP for care all quetsions answered to patients satisfaction. Patient verbalized understanding of diagnosis and treatments explained. To call sooner prior to next visit it any questions/concerns arise. Time 7 patient 30 minutes with greater than 50% of patient education and care coronation Case discussed with collaborating physician Mack Aguirre who reviewed the assessment and plan. Chart, medications, labs, vital signs reviewed. Dictation was accomplished with the use of [employer] voice recognition software, prone to medical misidentifications and grammatical errors. This is unintentional and the practitioner does try to identify and correct these, but some could still be present. Please do not hesitate to contact practitioner for clarification. 12/22/2023 Umbilical hernia without mention of obstruction or gangrene (ICD-10 - K42.9) Jesus is a 63-year-old male who presents the office for weight management follow-up. 09/23/2023: Weight 266, BMI 37.1 01/21/24: Weight 263, BMI 36.68. Losing some weight, following with his PCP for diabetes, we recommend he switch from Trulicity to Mounjaro, he did so, but preferred that his primary care prescribed medication. Primary care does prescribe the medication 5 mg, although patient has finished 4 weeks, he has a 3-month supply. Would like to see his back in 2 months. Discussed extensively lifestyle modifications including sleep, stress, hormones, exercise, nutrition. Patient states that he is trying to work on cutting sugars, but exercise is limited because of his neuropathy/arthritis . Discussed swimming, Pilates, yoga, stretching, patient states that he is not going to be doing this. Patient request follow-up in 2 months, we will see him then, sooner as needed. Continue following with PCP for care all quetsions answered to patients satisfaction. Patient verbalized understanding of diagnosis and treatments explained. To call sooner prior to next visit it any questions/concerns arise. Time 7 patient 30 minutes with greater than 50% of patient education and care coronation Case discussed with collaborating physician Mack Aguirre who reviewed the assessment and plan. Chart, medications, labs, vital signs reviewed. Dictation was accomplished with the use of [employer] voice recognition software, prone to medical misidentifications and grammatical errors. This is unintentional and the practitioner does try to identify and correct these, but some could still be present. Please do not hesitate to contact practitioner for clarification. PLAN OF TREATMENT No Information Progress Notes * Norma ALBA:1960 ([age] yo M)Acc No.[id number]:12/22/2023 Patient:??Colt ALBA Provider:??SHUKRI KAT PA-C :1960?Age:63 Y?Sex:Toby jose Date:12/22/2023 Address:[address] [place] [address] [place], [id number] Subjective: * Chief Complaints: * ?1. Pt presents for wt mgt follow up, pt has gained weight. * HPI: ?Constitutional:? Colt is a 63 year old male with past medical history of high blood pressure, diabetes mellitus, kidney stones is presenting for weight loss managment follow up.shot of 5 mg and doing well.Patient initially established with nurse practitioner Nery Schilling, saw a nurse practitioner Kyler Cagle once, patient stopped Trulicity, started on Mounjaro by his primary care office, has been on 5 mg, doing his fourth injection today, but has a 3-month supply of it. Hemoglobin A1c last month was 6.4, improved from 6.7. Not noticing any appetite suppression. States that he is trying to eat better portions, but still eats sugar, and does not exercise at all because of his joint pain. States that he does not eat bread, potatoes, and rice but eats some Posta. But he has arthritis, neuropathy so there is no exercise. * ROS:?Constitutional: Patient denies any excessive fatigue with exercise, no weight loss, no fever, no night sweats, no changes in sleep. ???Eyes: No eye discharge, no itching, no redness, no vision changes. Advised the significance of regular eye exams to screen for glaucoma and other eye problems. ???Ear nose throat: No ear pain, No sore throat, no postnasal drip, no runny nose, no sneezing, no hearing changes ???Cardiovascular: No chest pain, no dyspnea on exertion, no PND, no orthopnea, no irregular pulse, no palpitations, no claudication, no diaphoresis, no claudication. ???Respiratory: No chronic cough, no hemoptysis, no sputum, no wheezing, no SOB, no pleuritic pain. ???GI: No diarrhea, no constipation, no blood in the stools, no pain associated with eating, no indigestion, no difficulty swallowing, no appetite change. ???Genitourinary: No painful urination, no hesitancy, no blood in the urine, no incontinence, no frequency, no urgency, no abnormal discharge. ???Musculoskeletal: No back pain, no joint pain, no limitations to walking and running, no joint deformity, no joint stiffness, no muscle weakness ???Integumentary: No new skin rash. No new changes in skin moles, no pruritis, no color change. ???Neurological: No history of seizures, no memory loss, no language dysfunction, no inability to concentrate, no localized weakness, no sensation loss, no confusion, no dizziness, no tremor, no numbness, no tingling. ???Psychiatric: no anxiety, no depression, no suicidal thoughts, feels safe at home. ???Endocrine: No polyuria, no polyphagia, no polydipsia. No heat/cold intolerance, no excesss thirst. ???Hematological: No easy bruising or bleeding, no lymph node swelling. * Medical History:??High blood pressure, Diabetes mellitus, Kidney stones. * Surgical History:??Denies Pa st Surgical History. * Hospitalization/Major Diagno stic Procedure:??Denies Past Hospitalization. * Family History:??Father: ali ve.??Mother: .??1 son(s) - healthy. .?? father has hx of liver issues 1 child. 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 * Medications:??Taking Mounjar o 5 MG/0.5ML Solution Pen-injector as directed Subcutaneous weekly , Taking Probiotic 250 MG Capsule as directed Orally , Taking Fish Oil , Taking Vitamin D3 50 MCG (2000 UT) Tablet Chewable 2 tablets Orally Once a day , Taking Lisinopril 10 MG Tablet Oral , Taking Pravastatin Sodium 20 MG Tablet Oral , Taking Tadalafil 5 MG Tablet TAKE ONE TABLET BY MOUTH EVERY DAY Oral , Notes to Pharmacist: PRN, Discontinued Trulicity 1.5 MG/0.5ML Solution Pen-injector Subcutaneous , Notes to Pharmacist: MONDAY, Medication List reviewed and reconciled with the patient * Allergies:??N.K.D.A. Objective: * Vitals:??HR:58/min, BP:132/8 4mm Hg, Wt:263lbs, BMI:36.68Index, Ht: 71 in, Oxygen sat %:94%. * Physical Examination:?General: Age appropriate 63 yo male, well appearing, no acute distress, speaking in full sentences without respiratory compromise. Well groomed, well developed. Alert, Interactive. ?Skin: Warm, dry and intact. No lesions/rashes/erythema. ? HEENT: Normocephalic/atraumatic. EOMI intact. PERRLA. Vision intact. No ptosis or lid lag. Nares without discharge or inflammation. ?Neck/Thyroid: Supple, with no lymphadenopathy. Full ROM. ?Lung: Clear to auscultation bilaterally, no wheezes, rales or rhonchi. No barrel chest. Equal chest rise and fall bilaterally. ?Cardiac: S1 and S2 appreciated. No murmurs/rubs or gallops. ?Abdomen: No visble masses. ? Extremities: Bilateral lower extremities with no edema. Equal tone bilaterally. ?MSK: Moving all four extremeties. ?Neuro: CN II-XI grossly intact. ?Psych: Stable mood and affect. Assessment: * Assessment: 1.??Obesity (BMI 30-39.9) - E66.9 (Primary)??2.??BMI 36.0-36.9,adult - Z68.36??3.??Hypertension, essential - I10??4.??Type 2 diabetes mellitus without complications - E11.9??5.??Umbilical hernia without mention of obstruction or gangrene - K42.9?? Jesus is a 63-year-old mal e who presents the office for weight management follow-up. 09/23/2023: Weight 266, BMI 37.1 01/21/24: Weight 263, BMI 36.68. Losing some weight, following with his PCP for diabetes, we recommend he switch from Trulicity to Mounjaro, he did so, but preferred that his primary care prescribed medication. Primary care does prescribe the medication 5 mg, although patient has finished 4 weeks, he has a 3-month supply. Would like to see his back in 2 months. Discussed extensively lifestyle modifications including sleep, stress, hormones, exercise, nutrition. Patient states that he is trying to work on cutting sugars, but exercise is limited because of his neuropathy/arthritis. Discussed swimming, Pilates, yoga, stretching, patient states that he is not going to be doing this. Patient request follow-up in 2 months, we will see him then, sooner as needed. Continue following with PCP for care all quetsions answered to patients satisfaction. Patient verbalized understanding of diagnosis and treatments explained. To call sooner prior to next visit it any questions/concerns arise. Time 7 patient 30 minutes with greater than 50% of patient education and care coronation Case discussed with collaborating physician Mack Aguirre who reviewed the assessment and plan. Chart, medications, labs, vital signs reviewed. Dictation was accomplished with the use of [employer] voice recognition software, prone to medical misidentifications and grammatical errors. This is unintentional and the practitioner does try to identify and correct these, but some could still be present. Please do not hesitate to contact practitioner for clarification. Plan: * Treatment: * Images: Billing Information: * Visit Code:?? 91227 Office Visit, Est Pt., Level 3. Modifiers: 25 * Procedure Codes:?? * Sign off status: Completed true * Provider:??SHUKRI KAT PA-C Date:??12/10 History and Physical Notes * HPI (History of Present Illness) Category Sub-Category Detail Notes Category Not es Constitutional Colt is a [age] year old male with past medical history of high blood pressure, diabetes mellitus, kidney stones is presenting for weight loss managment follow up.shot of 5 mg and doing well.Patient initially established with nurse practitioner Nery Schilling, saw a nurse practitioner Kyler Cagle once, patient stopped Trulicity, started on Mounjaro by his primary care office, has been on 5 mg, doing his fourth injection today, but has a 3-month supply of it. Hemoglobin A1c last month was 6.4, improved from 6.7. Not noticing any appetite suppression. States that he is trying to eat better portions, but still eats sugar, and does not exercise at all because of his joint pain. States that he does not eat bread, potatoes, and rice but eats some Posta. But he has arthritis, neuropathy so there is no exercise. Physical Examination Category Sub-Category Detail Notes Section Note s General: Age appropriate 63 yo male, well appearing, no acute distress, speaking in full sentences without respiratory compromise. Well groomed, well developed. Alert, Interactive. Skin: Warm, dry and intact. No lesions/rashes/erythema. HEENT: Normocephalic/atraumatic. EOMI intact. PERRLA. Vision intact. No ptosis or lid lag. Nares without discharge or inflammation. Neck/Thyroid: Supple, with no lymphadenopathy. Full ROM. Lung: Clear to auscultation bilaterally, no wheezes, rales or rhonchi. No barrel chest. Equal chest rise and fall bilaterally. Cardiac: S1 and S2 appreciated. No murmurs/rubs or gallops. Abdomen: No visble masses. Extremities: Bilateral lower extremities with no edema. Equal tone bilaterally. MSK: Moving all four extremeties. Neuro: CN II-XI grossly intact. Psych: Stable mood and affect.
--- OUTSIDE RECORDS SUMMARY | 2024-09-03 13:37 | XMS_ITS ---
[facility] Address [address] [place] [id number] Care Team Providers Care Insights Analyst Name Role Phone Mario Vega, Rojas Primary Care Provider Unavailable Virgen Solis [phone] Encounters Encounter Location Date Provider Diagnosis [address] [address] 10/27/2023 Virgen Solis Plan Of Treatment No Information Progress Notes * Colt ALBA MDOB:1960 (63 yo M)Acc No.[id number]:10/27/2023 Progress Notes Patient:?Colt ALBA Provider:?Virgen Solis DPM :1960???Age:62 Y???Sex:Male Joe e:10/27/2023 Address:[address] [place], [place] [id number] Pcp:Radhika Juarez Subjective: * Chief Complaints: * ??? * Medical History:? Objective: * Vitals:? Assessment: Plan: * Treatment: * Images: * The named appointment provid er may or may not be the originator of this progress note, and it is not deemed complete until electronically signed by the appointment provider. Sign off status: Pending * Provider:Mone Solis DPM Date:?2023 Generated for Madhu carlisle/Dmitry/Marlensmitting on:?09/03/2024 01:37 PM EST
--- OUTSIDE RECORDS SUMMARY | 2024-09-03 13:37 | XMS_ITS | Patient Health Record ---
Author Organization [facility] Address [address] [place] [address] Care Team Providers Care Insurance Claims Clerk Name Role Phone AUSTYN DESTINEYCRISTIN Unavailable [phone] NITESH GUSMAN Unavailable [phone] SHUKRI KAT Unavailable [phone] ALLERGIES No Known Allergies REASON FOR REFERRAL No Information MEDICATIONS Medication SIG (Take, Route, Frequency, Duration) Notes Start Date End Date Status Fish Oil Active Vitamin D3 50 MCG (1999) 2 tablets Orally Once a day Active Lisinopril 10 MG Oral for 90 Days Active Pravastatin Sodium 20 MG Oral for 90 Days Active Tadalafil 5 MG TAKE ONE TABLET BY M OUTH EVERY DAY Oral for 90 Days PRN Activ e Mounjaro 5 MG/0.5ML as directed Subcutan eous weekly Active Probiotic 250 MG as directed Orally [...] many cigarettes a day do you smoke? -30 Alcohol Screen (Audit-C) Question Answer Notes Did you have a drink containing alcohol in the p ast year? 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 processor smokes 1 pack a day for 20 years PROBLEMS Problem Type ICD Code Onset Dates Problem Status W/U Status Risk SNOMED Code Notes Problem Type 2 diabetes mellitus without complications (E11.9) Active confirmed Type II diabetes mellitus without complication (151790457) Problem Obesity (BMI 30-39.9) (E66.9) Active confirmed Obesity (998668203) Problem BMI 37.0-37.9, adult (Z68.37) Active confirmed Obese class I I (19725344877939 5) Problem Umbilical hernia without mention of obstruction or gangrene (K42.9) Active confirmed Umbilical hernia (972187649) Problem BMI 36.0-36.9,adult (Z68.36) Active confirmed [id number] Problem BMI 38.0-38.9,adult (Z68.38) Active confirmed Obese class II (03692213928802 5) Problem Hypertension, essential (I10) Active confirmed Essential hypertension (87845127) VITAL SIGNS Heart Rate 58 /min 12/22/2023 Oximetry 94 % 12/22/2023 Blood pressure diastolic 84 mm Hg 12/22/2023 Height 71 in 12/22/2023 Blood pressure systolic 132 mm Hg 12/22/2023 Weight 263 lbs 12/22/2023 BMI 36.68 kg/m2 12/22/2023 Encounters Encounter Location Date Provider Diagnosis [facility] [address] [place] [address] 11/10[facility] [address] [place] [address] 02/23/2024 SHUKRI SHEY [facility] [address] [place] [address] 09/23/2023 NITESH UZMA Obesity (BMI 30-39.9 ) E66.9 ; BMI 37.0-37.9, adult Z68.37 ; Hypertension, essential I10 ; Type 2 diabetes mellitus without complications E11.9 and Umbilical hernia without mention of obstruction or gangrene K42.9 [facility] [address] [place] [address] 12/22/2023 SHUKRI SHEY Obesity (BMI 30-39.9 ) E66.9 ; BMI 36.0-36.9,adult Z68.36 ; Hypertension, essential I10 ; Type 2 diabetes mellitus without complications E11.9 and Umbilical hernia without mention of obstruction or gangrene K42.9 ASSESSMENTS Encounter Date Diagnosis Assessment Notes Treatment Notes Treatment Clinical Notes Section Notes 09/23/2023 Obesity (BMI 30-39.9) (ICD-10 - E66.9) His diabetes is actually well-controlled with an A1c of 6.7 Discussed superior molecules including Ozempic and Mounjaro for not only diabetes management however for weight loss I highly encouraged him to start Mounjaro He will check with his insurance company and his primary care to see him back in the office for routine follow-up Total time spent today was 30 minutes of which greater than 50% was spent on coordinating and counseling We are a board certified obesity and weight management practice Patient has trialed behavioral modification, dietary restrictions and exercise for a minimum of 6 months The most recent [place] [employer] of clinical endocrinologists and [place] [employer]in[employer] guidelines recommend patients who have overweight BMI or obesity BMI, who also have metabolic syndrome, prediabetes, or at risk of developing type 2 diabetes should aim for a weight loss goal of at least 10% of the baseline body weight Patient counseled regarding effects of GLP/GIP-1 agonists, and other FDA approved wgt loss meds with regards to a multifactorial approach of weight loss as mentioned above and not solely appetite suppression. We have discussed the mechanism of GLP-1's/GIP, dual incretins, appetitite suppressants I think this would be fantastic option for her given her metabolic workup and body composition We have discussed the risks and benefits and side effects including/and not limited to Sarcopenia, intestinal obstruction, constipation, nausea, lethargy, headache Discussed importance of protein consumption for muscle maintenance as well as strength and resistance training ,probiotics, B12 complex biotin , iron and other nutrients, To help avoid telogen effluvium We have discussed the lifelong requirement of nutritional supplementation And adherence to an exercise regimen as well as importance of follow-up The patient understands and agrees There is no history of medullary thyroid cancer or multiple endocrine neoplasia There is also no history of cardiovascular disease, hypertension, palpitations, or arrhythmias In the setting of potential stimulant/amphetamin e use such as phentermine We have also discussed risks and benefits, and the use of compounded medications to help offset the national shortages as well as financial implications vs trade name drugs We discussed in detail the management of diabetes mellitus. Emphasis was paid on nutrition, low carbohydrate diet with good fat and protein sources, fruits and vegetables was discussed. Exercise was recommended. Incorporation of daily walking into a routine was discussed. A pedometer goal of 10,000 steps was discussed. Management of diabetes mellitus along with medications to treat the condition was discussed. Importance of diabetic foot exam, diabetic eye exam, urine microalbumin analysis annually was discussed. Side effects of diabetic medications were discussed again. Patient agrees to take medications as prescribed and comply with lifestyle modifications. Patient has been found to be obese with a BMI of (). Patient has class () obesity. Patient was reassured and welcomed to the practice. We discussed that we stress a hollistic medical approach with emphasis on lifestyle modification. Patient was informed that a healthy lifestyle with exercise and good eating habits can help reduce his risk of medical complications. He is explained that obesity increases his risk of diabetes, cardiovascular disease, or organ damage. We spent a lot of time discussing the relationship between food, exercise, sleep, mental health and obesity. Patient was counseled on the importance EATING local, organic food when possible. Patient was educated on clean 15 and dirty dozen. I provided information about reading books called The Food Rules by Pavel Montanez and Eat Fat Get Lean by Dr Joaquin Chopra. Self education is important in the journey for weight management. Patient was offered diagnostic testing. We want to measure visceral adiposity, advanced body composition, adverse lipids, fatty acid balance, risk for heart disease and atherosclerosis, markers of inflammation and genetic susceptibility. Patient was counseled on weight management and was advised to lose weight using A. Meal Replacement Products We discussed the lifelong requirement of nutritional supplementation and adherence to an exercise regimen as well as importance of dietary follow-up Patient was educated on the replacement products called optifast. This is a good way of taking fixed amount of calories. It has been shown in studies to be ineffective weight management tool. We also recommend maintaining adequate protein intake and muscle composition, 1.5mg/kg This however has to be coupled with lifestyle intervention as well as laboratory data and EKG monitoring. It is impossible to know how a person will tolerate complete meal replacement. The side effects of meal replacement and weight loss could include syncopal attacks, dizziness, gallstones, potential cholecystectomy, possible heart attack and even . The benefits of meal replacement would be potential weight loss but no guarantees can be made. Meal replacement products are not covered by insurance. Once the patient has bought these products we cannot return them B. Lifestyle management which includes several strategies as below 1. Eat a low carbohydrate good fat good protein diet. Eliminate refined carbohydrates from the diet. Continue blood sugar and sugared beverages. Eat local organic when possible. Cook your own meals. Read food labels. None about healthy snacks. Portion control and food with low glycemic index 2. Exercise regularly. Try to get at least 6000 steps a day. Use a predominant to track activity level. Consider using apps like [employer], [employer], lose it, stick as needed for self-monitoring and weight management. Consider group exercises. Consider hiring a personalized living manager. Regular exercise is malcolm to sustainable health and prevents as a buffer against weight regain 3. Sleep is most important for healing. Tried to sleep at least 8 hours a night. A good quality sleep needs a sleep ritual with ideal room temperature of around 68. It might help to take a shower and have no electronics in the room and sleep in a very dark room without artificial light. Start her sleep routine and get up early in the morning and go to bed on time 4. Make a social connection. Surround yourself with positive people with positive energy. Connect with friends and family. 5. Get into the habit of meditating and mindfulness while doing everything. 6. Go outside and connect with nature. C. Prescription medications Patient was educated on the use of prescription medications for medical weight loss. This is a growing list and includes phentermine, Topamax,Qsymia, contrave, belviq and saxenda. All prescription medications could have side effects including but not limited to kidney stones, seizure disorder cardiac arrhythmias heart attack pancreatitis etc. etc.. Patient was encouraged to read the prescription insert and have coaching with their pharmacist and make an informed decision about taking medication and know that these medications are being prescribed with good intentions and we do not know how a patient would react to her medication. Sudden medications are FDA approved for weight loss and there is also off label use depending on patient's inability to afford medications in an attempt to lose weight D. Behavioral counseling was done to establish a relationship between food and an mood. Patient was provided information about local counseling and psychiatry and Dr Worthy at [employer]. We would like to cover regular topics and build on low glycemic eating exercise mindful eating, using yoga and meditation along with deep breathing and connecting with friends and family. E. MASS PAT reviewed, Patient's current medications were reviewed and opinion was given on medication that can cause weight gain and can be substituted F. Patient was assessed for risk with obesity including and not limiting to atherosclerosis heart disease stroke kidney disease, restrictive lung disease, irritable bowel syndrome and overall mortality. Risk of developing prediabetes diabetes and metabolic syndrome was discussed G. Therapeutic plan: We have decided to make therapeutic plan which would include choosing wisely on calories restricting portion getting active, tracking weight, getting good quality sleep and working on time management H. Patient will follow up in (4) weeks for weight management Of note, some information is being carried forward from prior records for informational purposes only and is being cited so that efficiency, safety and quality of the patient's care is not compromised This note was prepared using voice recognition software and direct typing Please excuse inadvertent assistant golf coach or typing errors, or uncorrected word substitutions Although every attempt has been made by the provider to proofread this document, occasional misspellings and typographical errors may still be present Due to the previous pandemic, and the use of personal protective equipment (PPE) This may decrease voice recognition accuracy Inadvertent assistant golf coach errors may occur 12/22/2023 Obesity (BMI 30-39.9) (ICD-10 - E66.9) [...] coronation Case discussed with collaborating physician Mack Agiurre who reviewed the assessment and plan. Chart, medications, labs, vital signs reviewed. Dictation was accomplished with the use of [employer] voice recognition software, prone to medical misidentifications [...] Dictation was accomplished with the use of [employer] voice recognition software, prone to medical misidentifications [...] Dictation was accomplished with the use of [employer] voice recognition software, prone to medical misidentifications and grammatical errors. This is unintentional and the practitioner does try to identify and correct these, but some could still be present. Please do not hesitate to contact practitioner for clarification. 09/23/2023 BMI 37.0-37.9, adult (ICD-10 - Z68.37) His diabetes is actually well-controlled with an A1c of 6.7 Discussed superior molecules including Ozempic and Mounjaro for not only diabetes management however for weight loss I highly encouraged him to start Mounjaro He will check with his insurance company and his primary care to see him back in the office for routine follow-up Total time spent today was 30 minutes of which greater than 50% was spent on coordinating and counseling We are a board certified obesity and weight management practice Patient has trialed behavioral modification, dietary restrictions and exercise for a minimum of 6 months The most recent [place] [employer] of clinical endocrinologists and [place] [employer]in[employer] guidelines recommend patients who have overweight BMI or obesity BMI, who also have metabolic syndrome, prediabetes, or at risk of developing type 2 diabetes should aim for a weight loss goal of at least 10% of the baseline body weight Patient counseled regarding effects of GLP/GIP-1 agonists, and other FDA approved wgt loss meds with regards to a multifactorial approach of weight loss as mentioned above and not solely appetite suppression. We have discussed the mechanism of GLP-1's/GIP, dual incretins, appetitite suppressants I think this would be fantastic option for her given her metabolic workup and body composition We have discussed the risks and benefits and side effects including/and not limited to Sarcopenia, intestinal obstruction, constipation, nausea, lethargy, headache Discussed importance of protein consumption for muscle maintenance as well as strength and resistance training ,probiotics, B12 complex biotin , iron and other nutrients, To help avoid telogen effluvium We have discussed the lifelong requirement of nutritional supplementation And adherence to an exercise regimen as well as importance of follow-up The patient understands and agrees There is no history of medullary thyroid cancer or multiple endocrine neoplasia There is also no history of cardiovascular disease, hypertension, palpitations, or arrhythmias In the setting of potential stimulant/amphetamin e use such as phentermine We have also discussed risks and benefits, and the use of compounded medications to help offset the national shortages as well as financial implications vs trade name drugs We discussed in detail the management of diabetes mellitus. Emphasis was paid on nutrition, low carbohydrate diet with good fat and protein sources, fruits and vegetables was discussed. Exercise was recommended. Incorporation of daily walking into a routine was discussed. A pedometer goal of 10,000 steps was discussed. Management of diabetes mellitus along with medications to treat the condition was discussed. Importance of diabetic foot exam, diabetic eye exam, urine microalbumin analysis annually was discussed. Side effects of diabetic medications were discussed again. Patient agrees to take medications as prescribed and comply with lifestyle modifications. Patient has been found to be obese with a BMI of (). Patient has class () obesity. Patient was reassured and welcomed to the practice. We discussed that we stress a hollistic medical approach with emphasis on lifestyle modification. Patient was informed that a healthy lifestyle with exercise and good eating habits can help reduce his risk of medical complications. He is explained that obesity increases his risk of diabetes, cardiovascular disease, or organ damage. We spent a lot of time discussing the relationship between food, exercise, sleep, mental health and obesity. Patient was counseled on the importance EATING local, organic food when possible. Patient was educated on clean 15 and dirty dozen. I provided information about reading books called The Food Rules by Pavel Montanez and Eat Fat Get Lean by Dr Joaquin Chopra. Self education is important in the journey for weight management. Patient was offered diagnostic testing. We want to measure visceral adiposity, advanced body composition, adverse lipids, fatty acid balance, risk for heart disease and atherosclerosis, markers of inflammation and genetic susceptibility. Patient was counseled on weight management and was advised to lose weight using A. Meal Replacement Products We discussed the lifelong requirement of nutritional supplementation and adherence to an exercise regimen as well as importance of dietary follow-up Patient was educated on the replacement products called optifast. This is a good way of taking fixed amount of calories. It has been shown in studies to be ineffective weight management tool. We also recommend maintaining adequate protein intake and muscle composition, 1.5mg/kg This however has to be coupled with lifestyle intervention as well as laboratory data and EKG monitoring. It is impossible to know how a person will tolerate complete meal replacement. The side effects of meal replacement and weight loss could include syncopal attacks, dizziness, gallstones, potential cholecystectomy, possible heart attack and even . The benefits of meal replacement would be potential weight loss but no guarantees can be made. Meal replacement products are not covered by insurance. Once the patient has bought these products we cannot return them B. Lifestyle management which includes several strategies as below 1. Eat a low carbohydrate good fat good protein diet. Eliminate refined carbohydrates from the diet. Continue blood sugar and sugared beverages. Eat local organic when possible. Cook your own meals. Read food labels. None about healthy snacks. Portion control and food with low glycemic index 2. Exercise regularly. Try to get at least 6000 steps a day. Use a predominant to track activity level. Consider using apps like [employer], [employer], lose it, stick as needed for self-monitoring and weight management. Consider group exercises. Consider hiring a personalized living manager. Regular exercise is malcolm to sustainable health and prevents as a buffer against weight regain 3. Sleep is most important for healing. Tried to sleep at least 8 hours a night. A good quality sleep needs a sleep ritual with ideal room temperature of around 68. It might help to take a shower and have no electronics in the room and sleep in a very dark room without artificial light. Start her sleep routine and get up early in the morning and go to bed on time 4. Make a social connection. Surround yourself with positive people with positive energy. Connect with friends and family. 5. Get into the habit of meditating and mindfulness while doing everything. 6. Go outside and connect with nature. C. Prescription medications Patient was educated on the use of prescription medications for medical weight loss. This is a growing list and includes phentermine, Topamax,Qsymia, contrave, belviq and saxenda. All prescription medications could have side effects including but not limited to kidney stones, seizure disorder cardiac arrhythmias heart attack pancreatitis etc. etc.. Patient was encouraged to read the prescription insert and have coaching with their pharmacist and make an informed decision about taking medication and know that these medications are being prescribed with good intentions and we do not know how a patient would react to her medication. Sudden medications are FDA approved for weight loss and there is also off label use depending on patient's inability to afford medications in an attempt to lose weight D. Behavioral counseling was done to establish a relationship between food and an mood. Patient was provided information about local counseling and psychiatry and Dr Worthy at [employer]. We would like to cover regular topics and build on low glycemic eating exercise mindful eating, using yoga and meditation along with deep breathing and connecting with friends and family. E. MASS PAT reviewed, Patient's current medications were reviewed and opinion was given on medication that can cause weight gain and can be substituted F. Patient was assessed for risk with obesity including and not limiting to atherosclerosis heart disease stroke kidney disease, restrictive lung disease, irritable bowel syndrome and overall mortality. Risk of developing prediabetes diabetes and metabolic syndrome was discussed G. Therapeutic plan: We have decided to make therapeutic plan which would include choosing wisely on calories restricting portion getting active, tracking weight, getting good quality sleep and working on time management H. Patient will follow up in (4) weeks for weight management Of note, some information is being carried forward from prior records for informational purposes only and is being cited so that efficiency, safety and quality of the patient's care is not compromised This note was prepared using voice recognition software and direct typing Please excuse inadvertent assistant golf coach or typing errors, or uncorrected word substitutions Although every attempt has been made by the provider to proofread this document, occasional misspellings and typographical errors may still be present Due to the previous pandemic, and the use of personal protective equipment (PPE) This may decrease voice recognition accuracy Inadvertent assistant golf coach errors may occur 09/23/2023 Hypertension, essential (ICD-10 - I10) His diabetes is actually well-controlled with an A1c of 6.7 Discussed superior molecules including Ozempic and Mounjaro for not only diabetes management however for weight loss I highly encouraged him to start Mounjaro He will check with his insurance company and his primary care to see him back in the office for routine follow-up Total time spent today was 30 minutes of which greater than 50% was spent on coordinating and counseling We are a board certified obesity and weight management practice Patient has trialed behavioral modification, dietary restrictions and exercise for a minimum of 6 months The most recent [place] [employer] of clinical endocrinologists and [place] [employer]in[employer] guidelines recommend patients who have overweight BMI or obesity BMI, who also have metabolic syndrome, prediabetes, or at risk of developing type 2 diabetes should aim for a weight loss goal of at least 10% of the baseline body weight Patient counseled regarding effects of GLP/GIP-1 agonists, and other FDA approved wgt loss meds with regards to a multifactorial approach of weight loss as mentioned above and not solely appetite suppression. We have discussed the mechanism of GLP-1's/GIP, dual incretins, appetitite suppressants I think this would be fantastic option for her given her metabolic workup and body composition We have discussed the risks and benefits and side effects including/and not limited to Sarcopenia, intestinal obstruction, constipation, nausea, lethargy, headache Discussed importance of protein consumption for muscle maintenance as well as strength and resistance training ,probiotics, B12 complex biotin , iron and other nutrients, To help avoid telogen effluvium We have discussed the lifelong requirement of nutritional supplementation And adherence to an exercise regimen as well as importance of follow-up The patient understands and agrees There is no history of medullary thyroid cancer or multiple endocrine neoplasia There is also no history of cardiovascular disease, hypertension, palpitations, or arrhythmias In the setting of potential stimulant/amphetamin e use such as phentermine We have also discussed risks and benefits, and the use of compounded medications to help offset the national shortages as well as financial implications vs trade name drugs We discussed in detail the management of diabetes mellitus. Emphasis was paid on nutrition, low carbohydrate diet with good fat and protein sources, fruits and vegetables was discussed. Exercise was recommended. Incorporation of daily walking into a routine was discussed. A pedometer goal of 10,000 steps was discussed. Management of diabetes mellitus along with medications to treat the condition was discussed. Importance of diabetic foot exam, diabetic eye exam, urine microalbumin analysis annually was discussed. Side effects of diabetic medications were discussed again. Patient agrees to take medications as prescribed and comply with lifestyle modifications. Patient has been found to be obese with a BMI of (). Patient has class () obesity. Patient was reassured and welcomed to the practice. We discussed that we stress a hollistic medical approach with emphasis on lifestyle modification. Patient was informed that a healthy lifestyle with exercise and good eating habits can help reduce his risk of medical complications. He is explained that obesity increases his risk of diabetes, cardiovascular disease, or organ damage. We spent a lot of time discussing the relationship between food, exercise, sleep, mental health and obesity. Patient was counseled on the importance EATING local, organic food when possible. Patient was educated on clean 15 and dirty dozen. I provided information about reading books called The Food Rules by Pavel Montanez and Eat Fat Get Lean by Dr Joaquin Chopra. Self education is important in the journey for weight management. Patient was offered diagnostic testing. We want to measure visceral adiposity, advanced body composition, adverse lipids, fatty acid balance, risk for heart disease and atherosclerosis, markers of inflammation and genetic susceptibility. Patient was counseled on weight management and was advised to lose weight using A. Meal Replacement Products We discussed the lifelong requirement of nutritional supplementation and adherence to an exercise regimen as well as importance of dietary follow-up Patient was educated on the replacement products called optifast. This is a good way of taking fixed amount of calories. It has been shown in studies to be ineffective weight management tool. We also recommend maintaining adequate protein intake and muscle composition, 1.5mg/kg This however has to be coupled with lifestyle intervention as well as laboratory data and EKG monitoring. It is impossible to know how a person will tolerate complete meal replacement. The side effects of meal replacement and weight loss could include syncopal attacks, dizziness, gallstones, potential cholecystectomy, possible heart attack and even . The benefits of meal replacement would be potential weight loss but no guarantees can be made. Meal replacement products are not covered by insurance. Once the patient has bought these products we cannot return them B. Lifestyle management which includes several strategies as below 1. Eat a low carbohydrate good fat good protein diet. Eliminate refined carbohydrates from the diet. Continue blood sugar and sugared beverages. Eat local organic when possible. Cook your own meals. Read food labels. None about healthy snacks. Portion control and food with low glycemic index 2. Exercise regularly. Try to get at least 6000 steps a day. Use a predominant to track activity level. Consider using apps like [employer], [employer], lose it, stick as needed for self-monitoring and weight management. Consider group exercises. Consider hiring a personalized living manager. Regular exercise is malcolm to sustainable health and prevents as a buffer against weight regain 3. Sleep is most important for healing. Tried to sleep at least 8 hours a night. A good quality sleep needs a sleep ritual with ideal room temperature of around 68. It might help to take a shower and have no electronics in the room and sleep in a very dark room without artificial light. Start her sleep routine and get up early in the morning and go to bed on time 4. Make a social connection. Surround yourself with positive people with positive energy. Connect with friends and family. 5. Get into the habit of meditating and mindfulness while doing everything. 6. Go outside and connect with nature. C. Prescription medications Patient was educated on the use of prescription medications for medical weight loss. This is a growing list and includes phentermine, Topamax,Qsymia, contrave, belviq and saxenda. All prescription medications could have side effects including but not limited to kidney stones, seizure disorder cardiac arrhythmias heart attack pancreatitis etc. etc.. Patient was encouraged to read the prescription insert and have coaching with their pharmacist and make an informed decision about taking medication and know that these medications are being prescribed with good intentions and we do not know how a patient would react to her medication. Sudden medications are FDA approved for weight loss and there is also off label use depending on patient's inability to afford medications in an attempt to lose weight D. Behavioral counseling was done to establish a relationship between food and an mood. Patient was provided information about local counseling and psychiatry and Dr Worthy at [facility]. We would like to cover regular topics and build on low glycemic eating exercise mindful eating, using yoga and meditation along with deep breathing and connecting with friends and family. E. MASS PAT reviewed, Patient's current medications were reviewed and opinion was given on medication that can cause weight gain and can be substituted F. Patient was assessed for risk with obesity including and not limiting to atherosclerosis heart disease stroke kidney disease, restrictive lung disease, irritable bowel syndrome and overall mortality. Risk of developing prediabetes diabetes and metabolic syndrome was discussed G. Therapeutic plan: We have decided to make therapeutic plan which would include choosing wisely on calories restricting portion getting active, tracking weight, getting good quality sleep and working on time management H. Patient will follow up in (4) weeks for weight management Of note, some information is being carried forward from prior records for informational purposes only and is being cited so that efficiency, safety and quality of the patient's care is not compromised This note was prepared using voice recognition software and direct typing Please excuse inadvertent assistant golf coach or typing errors, or uncorrected word substitutions Although every attempt has been made by the provider to proofread this document, occasional misspellings and typographical errors may still be present Due to the previous pandemic, and the use of personal protective equipment (PPE) This may decrease voice recognition accuracy Inadvertent assistant golf coach errors may occur 12/22/2023 Type 2 diabetes mellitus without complications [...] Dictation was accomplished with the use of [employer] voice recognition software, prone to medical misidentifications [...] Dictation was accomplished with the use of [employer] voice recognition software, prone to medical misidentifications and grammatical errors. This is unintentional and the practitioner does try to identify and correct these, but some could still be present. Please do not hesitate to contact practitioner for clarification. 09/23/2023 Type 2 diabetes mellitus without complications (ICD-10 - E11.9) His diabetes is actually well-controlled with an A1c of 6.7 Discussed superior molecules including Ozempic and Mounjaro for not only diabetes management however for weight loss I highly encouraged him to start Mounjaro He will check with his insurance company and his primary care to see him back in the office for routine follow-up Total time spent today was 30 minutes of which greater than 50% was spent on coordinating and counseling We are a board certified obesity and weight management practice Patient has trialed behavioral modification, dietary restrictions and exercise for a minimum of 6 months The most recent [place] [employer] endocrinologists and [place] [employer] guidelines recommend patients who have overweight BMI or obesity BMI, who also have metabolic syndrome, prediabetes, or at risk of developing type 2 diabetes should aim for a weight loss goal of at least 10% of the baseline body weight Patient counseled regarding effects of GLP/GIP-1 agonists, and other FDA approved wgt loss meds with regards to a multifactorial approach of weight loss as mentioned above and not solely appetite suppression. We have discussed the mechanism of GLP-1's/GIP, dual incretins, appetitite suppressants I think this would be fantastic option for her given her metabolic workup and body composition We have discussed the risks and benefits and side effects including/and not limited to Sarcopenia, intestinal obstruction, constipation, nausea, lethargy, headache Discussed importance of protein consumption for muscle maintenance as well as strength and resistance training ,probiotics, B12 complex biotin , iron and other nutrients, To help avoid telogen effluvium We have discussed the lifelong requirement of nutritional supplementation And adherence to an exercise regimen as well as importance of follow-up The patient understands and agrees There is no history of medullary thyroid cancer or multiple endocrine neoplasia There is also no history of cardiovascular disease, hypertension, palpitations, or arrhythmias In the setting of potential stimulant/amphetamin e use such as phentermine We have also discussed risks and benefits, and the use of compounded medications to help offset the national shortages as well as financial implications vs trade name drugs We discussed in detail the management of diabetes mellitus. Emphasis was paid on nutrition, low carbohydrate diet with good fat and protein sources, fruits and vegetables was discussed. Exercise was recommended. Incorporation of daily walking into a routine was discussed. A pedometer goal of 10,000 steps was discussed. Management of diabetes mellitus along with medications to treat the condition was discussed. Importance of diabetic foot exam, diabetic eye exam, urine microalbumin analysis annually was discussed. Side effects of diabetic medications were discussed again. Patient agrees to take medications as prescribed and comply with lifestyle modifications. Patient has been found to be obese with a BMI of (). Patient has class () obesity. Patient was reassured and welcomed to the practice. We discussed that we stress a hollistic medical approach with emphasis on lifestyle modification. Patient was informed that a healthy lifestyle with exercise and good eating habits can help reduce his risk of medical complications. He is explained that obesity increases his risk of diabetes, cardiovascular disease, or organ damage. We spent a lot of time discussing the relationship between food, exercise, sleep, mental health and obesity. Patient was counseled on the importance EATING local, organic food when possible. Patient was educated on clean 15 and dirty dozen. I provided information about reading books called The Food Rules by Pavel Montanez and Eat Fat Get Lean by Dr Joaquin Chopra. Self education is important in the journey for weight management. Patient was offered diagnostic testing. We want to measure visceral adiposity, advanced body composition, adverse lipids, fatty acid balance, risk for heart disease and atherosclerosis, markers of inflammation and genetic susceptibility. Patient was counseled on weight management and was advised to lose weight using A. Meal Replacement Products We discussed the lifelong requirement of nutritional supplementation and adherence to an exercise regimen as well as importance of dietary follow-up Patient was educated on the replacement products called optifast. This is a good way of taking fixed amount of calories. It has been shown in studies to be ineffective weight management tool. We also recommend maintaining adequate protein intake and muscle composition, 1.5mg/kg This however has to be coupled with lifestyle intervention as well as laboratory data and EKG monitoring. It is impossible to know how a person will tolerate complete meal replacement. The side effects of meal replacement and weight loss could include syncopal attacks, dizziness, gallstones, potential cholecystectomy, possible heart attack and even . The benefits of meal replacement would be potential weight loss but no guarantees can be made. Meal replacement products are not covered by insurance. Once the patient has bought these products we cannot return them B. Lifestyle management which includes several strategies as below 1. Eat a low carbohydrate good fat good protein diet. Eliminate refined carbohydrates from the diet. Continue blood sugar and sugared beverages. Eat local organic when possible. Cook your own meals. Read food labels. None about healthy snacks. Portion control and food with low glycemic index 2. Exercise regularly. Try to get at least 6000 steps a day. Use a predominant to track activity level. Consider using apps like [employer], [employer]fitnesspal, lose it, stick as needed for self-monitoring and weight management. Consider group exercises. Consider hiring a personalized living manager. Regular exercise is malcolm to sustainable health and prevents as a buffer against weight regain 3. Sleep is most important for healing. Tried to sleep at least 8 hours a night. A good quality sleep needs a sleep ritual with ideal room temperature of around 68. It might help to take a shower and have no electronics in the room and sleep in a very dark room without artificial light. Start her sleep routine and get up early in the morning and go to bed on time 4. Make a social connection. Surround yourself with positive people with positive energy. Connect with friends and family. 5. Get into the habit of meditating and mindfulness while doing everything. 6. Go outside and connect with nature. C. Prescription medications Patient was educated on the use of prescription medications for medical weight loss. This is a growing list and includes phentermine, Topamax,Qsymia, contrave, belviq and saxenda. All prescription medications could have side effects including but not limited to kidney stones, seizure disorder cardiac arrhythmias heart attack pancreatitis etc. etc.. Patient was encouraged to read the prescription insert and have coaching with their pharmacist and make an informed decision about taking medication and know that these medications are being prescribed with good intentions and we do not know how a patient would react to her medication. Sudden medications are FDA approved for weight loss and there is also off label use depending on patient's inability to afford medications in an attempt to lose weight D. Behavioral counseling was done to establish a relationship between food and an mood. Patient was provided information about local counseling and psychiatry and Dr Worthy at [facility]. We would like to cover regular topics and build on low glycemic eating exercise mindful eating, using yoga and meditation along with deep breathing and connecting with friends and family. E. MASS PAT reviewed, Patient's current medications were reviewed and opinion was given on medication that can cause weight gain and can be substituted F. Patient was assessed for risk with obesity including and not limiting to atherosclerosis heart disease stroke kidney disease, restrictive lung disease, irritable bowel syndrome and overall mortality. Risk of developing prediabetes diabetes and metabolic syndrome was discussed G. Therapeutic plan: We have decided to make therapeutic plan which would include choosing wisely on calories restricting portion getting active, tracking weight, getting good quality sleep and working on time management H. Patient will follow up in (4) weeks for weight management Of note, some information is being carried forward from prior records for informational purposes only and is being cited so that efficiency, safety and quality of the patient's care is not compromised This note was prepared using voice recognition software and direct typing Please excuse inadvertent assistant golf coach or typing errors, or uncorrected word substitutions Although every attempt has been made by the provider to proofread this document, occasional misspellings and typographical errors may still be present Due to the previous pandemic, and the use of personal protective equipment (PPE) This may decrease voice recognition accuracy Inadvertent assistant golf coach errors may occur 09/23/2023 Umbilical hernia without mention of obstruction or gangrene (ICD-10 - K42.9) His diabetes is actually well-controlled with an A1c of 6.7 Discussed superior molecules including Ozempic and Mounjaro for not only diabetes management however for weight loss I highly encouraged him to start Mounjaro He will check with his insurance company and his primary care to see him back in the office for routine follow-up Total time spent today was 30 minutes of which greater than 50% was spent on coordinating and counseling We are a board certified obesity and weight management practice Patient has trialed behavioral modification, dietary restrictions and exercise for a minimum of 6 months The most recent [place] [employer]ocrinologists and [place] [employer] guidelines recommend patients who have overweight BMI or obesity BMI, who also have metabolic syndrome, prediabetes, or at risk of developing type 2 diabetes should aim for a weight loss goal of at least 10% of the baseline body weight Patient counseled regarding effects of GLP/GIP-1 agonists, and other FDA approved wgt loss meds with regards to a multifactorial approach of weight loss as mentioned above and not solely appetite suppression. We have discussed the mechanism of GLP-1's/GIP, dual incretins, appetitite suppressants I think this would be fantastic option for her given her metabolic workup and body composition We have discussed the risks and benefits and side effects including/and not limited to Sarcopenia, intestinal obstruction, constipation, nausea, lethargy, headache Discussed importance of protein consumption for muscle maintenance as well as strength and resistance training ,probiotics, B12 complex biotin , iron and other nutrients, To help avoid telogen effluvium We have discussed the lifelong requirement of nutritional supplementation And adherence to an exercise regimen as well as importance of follow-up The patient understands and agrees There is no history of medullary thyroid cancer or multiple endocrine neoplasia There is also no history of cardiovascular disease, hypertension, palpitations, or arrhythmias In the setting of potential stimulant/amphetamin e use such as phentermine We have also discussed risks and benefits, and the use of compounded medications to help offset the national shortages as well as financial implications vs trade name drugs We discussed in detail the management of diabetes mellitus. Emphasis was paid on nutrition, low carbohydrate diet with good fat and protein sources, fruits and vegetables was discussed. Exercise was recommended. Incorporation of daily walking into a routine was discussed. A pedometer goal of 10,000 steps was discussed. Management of diabetes mellitus along with medications to treat the condition was discussed. Importance of diabetic foot exam, diabetic eye exam, urine microalbumin analysis annually was discussed. Side effects of diabetic medications were discussed again. Patient agrees to take medications as prescribed and comply with lifestyle modifications. Patient has been found to be obese with a BMI of (). Patient has class () obesity. Patient was reassured and welcomed to the practice. We discussed that we stress a hollistic medical approach with emphasis on lifestyle modification. Patient was informed that a healthy lifestyle with exercise and good eating habits can help reduce his risk of medical complications. He is explained that obesity increases his risk of diabetes, cardiovascular disease, or organ damage. We spent a lot of time discussing the relationship between food, exercise, sleep, mental health and obesity. Patient was counseled on the importance EATING local, organic food when possible. Patient was educated on clean 15 and dirty dozen. I provided information about reading books called The Food Rules by Pavel Montanez and Eat Fat Get Lean by Dr Joaquin Chopra. Self education is important in the journey for weight management. Patient was offered diagnostic testing. We want to measure visceral adiposity, advanced body composition, adverse lipids, fatty acid balance, risk for heart disease and atherosclerosis, markers of inflammation and genetic susceptibility. Patient was counseled on weight management and was advised to lose weight using A. Meal Replacement Products We discussed the lifelong requirement of nutritional supplementation and adherence to an exercise regimen as well as importance of dietary follow-up Patient was educated on the replacement products called optifast. This is a good way of taking fixed amount of calories. It has been shown in studies to be ineffective weight management tool. We also recommend maintaining adequate protein intake and muscle composition, 1.5mg/kg This however has to be coupled with lifestyle intervention as well as laboratory data and EKG monitoring. It is impossible to know how a person will tolerate complete meal replacement. The side effects of meal replacement and weight loss could include syncopal attacks, dizziness, gallstones, potential cholecystectomy, possible heart attack and even . The benefits of meal replacement would be potential weight loss but no guarantees can be made. Meal replacement products are not covered by insurance. Once the patient has bought these products we cannot return them B. Lifestyle management which includes several strategies as below 1. Eat a low carbohydrate good fat good protein diet. Eliminate refined carbohydrates from the diet. Continue blood sugar and sugared beverages. Eat local organic when possible. Cook your own meals. Read food labels. None about healthy snacks. Portion control and food with low glycemic index 2. Exercise regularly. Try to get at least 6000 steps a day. Use a predominant to track activity level. Consider using apps like [employer], [employer], lose it, stick as needed for self-monitoring and weight management. Consider group exercises. Consider hiring a personalized living manager. Regular exercise is malcolm to sustainable health and prevents as a buffer against weight regain 3. Sleep is most important for healing. Tried to sleep at least 8 hours a night. A good quality sleep needs a sleep ritual with ideal room temperature of around 68. It might help to take a shower and have no electronics in the room and sleep in a very dark room without artificial light. Start her sleep routine and get up early in the morning and go to bed on time 4. Make a social connection. Surround yourself with positive people with positive energy. Connect with friends and family. 5. Get into the habit of meditating and mindfulness while doing everything. 6. Go outside and connect with nature. C. Prescription medications Patient was educated on the use of prescription medications for medical weight loss. This is a growing list and includes phentermine, Topamax,Qsymia, contrave, belviq and saxenda. All prescription medications could have side effects including but not limited to kidney stones, seizure disorder cardiac arrhythmias heart attack pancreatitis etc. etc.. Patient was encouraged to read the prescription insert and have coaching with their pharmacist and make an informed decision about taking medication and know that these medications are being prescribed with good intentions and we do not know how a patient would react to her medication. Sudden medications are FDA approved for weight loss and there is also off label use depending on patient's inability to afford medications in an attempt to lose weight D. Behavioral counseling was done to establish a relationship between food and an mood. Patient was provided information about local counseling and psychiatry and Dr Worthy at [facility]. We would like to cover regular topics and build on low glycemic eating exercise mindful eating, using yoga and meditation along with deep breathing and connecting with friends and family. E. MASS PAT reviewed, Patient's current medications were reviewed and opinion was given on medication that can cause weight gain and can be substituted F. Patient was assessed for risk with obesity including and not limiting to atherosclerosis heart disease stroke kidney disease, restrictive lung disease, irritable bowel syndrome and overall mortality. Risk of developing prediabetes diabetes and metabolic syndrome was discussed G. Therapeutic plan: We have decided to make therapeutic plan which would include choosing wisely on calories restricting portion getting active, tracking weight, getting good quality sleep and working on time management H. Patient will follow up in (4) weeks for weight management Of note, some information is being carried forward from prior records for informational purposes only and is being cited so that efficiency, safety and quality of the patient's care is not compromised This note was prepared using voice recognition software and direct typing Please excuse inadvertent assistant golf coach or typing errors, or uncorrected word substitutions Although every attempt has been made by the provider to proofread this document, occasional misspellings and typographical errors may still be present Due to the previous pandemic, and the use of personal protective equipment (PPE) This may decrease voice recognition accuracy Inadvertent assistant golf coach errors may occur PLAN OF TREATMENT No Information Insurance Providers Payer Name Payer Address Payer Phone Subscriber Number Group Number Insured Name Patient Relationship to Insured Coverage Start Date Coverage End Date [facility] [address] [place] [address] [phone] [id number] Colt Tse Self - patient is the insured 2 MEDICAL (GENERAL) HISTORY Medical History History ICD Code high blood pressure diabetes mellitus kidney stones
--- OUTSIDE RECORDS SUMMARY | 2024-09-03 13:38 | XMS_ITS | Patient Health Record ---
Author Organization [facility] Celsa laughlin [place] Address [address] [place] [address] Care Team Providers Care Filler Shredder Helper Name Role Phone Rojas Martin M.D. Primary Care Provider Unavailable Virgen Solis [phone] Reason For Referral No Information Encounters Encounter Location Date Provider Diagnosis [facility] [address] 10/16/2023 Virgen Solis Plan Of Treatment No Information Insurance Providers Payer Name Payer Address Payer Phone Subscriber Number Group Number Insured Name Patient Relationship to Insured Coverage Start Date Coverage End Date [facility] [address] [place] [address] [phone] [id number] Colt Tse Self - patient is the insured
--- OUTSIDE RECORDS SUMMARY | 2024-09-03 13:38 | XMS_ITS ---
Author Organization [facility] Celsa qian Solon Address [address] [place] [address] Care Team Providers Care Telephone Operators Supervisor Name Role Phone Rojas Martin M.D. 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 [place] [address] 10/16/2023 Virgenfarshad Solis Plan Of Treatment No Information Progress Notes * Colt TSE MDOB:1960 (62 yo M)Acc No.[id number]:10/16/2023 Patient:?Colt Tse :1960???Age:62 Y???Sex:Male Address:[address] [place] [id number] * true * Date:? Generated for Natanaeli maylin/Dmitry/eTransmitting on:?09/03/2024 01:37 PM EST
== END 2024-09-03 14:13 | disposition home or self-care (01) ==
LOC: HO.HUSH 13:35
PROVIDERS: PCP Internal Medicine; Visit Provider Urology
DX: N20.0 Calculus of kidney (principal); E11.69 Type 2 diabetes mellitus with other specified complication; N52.1 Erectile dysfunction due to diseases classified elsewhere; N32.89 Other specified disorders of bladder
CPT/HCPCS: 99214

== ENCOUNTER 2024-11-05 14:04 | Outpatient (AMB) | payer BC, SELFPAY ==
--- NOTE | 2024-11-05 14:05 | MHC.OFFVIS ---
Intake Visit Reasons: 2M Med Review(Toviaz) Intake Note: Patient is present for 2M MED REVIEW (TOVIAZ) Urology Medication:TADALAFIL,TOVIAZ Antibiotic Allergy:NONE Blood Thinner:NONE Fabric Cutter Required: No Allergies No Known Allergies [No Known Allergies*] Allergy (Verified 11/05/24 14:07) HPI Comments Details: Colt ALBA is a very pleasant male. They are a patient of Dr Martin?. They are seen in the office today for the following urologic conditions. - nephrolithiasis - erectile dysfunction - lower urinary tract symptoms Telemedicine Evaluation 15 min Consultation [employer] Two month follow-up trial high-dose Toviaz - mild benefit Will trial Myrbetriq - 2 month follow-up Reasonable prior response to Cialis 5 mg for stability ?He has a complicated medical history. ?March 2013 underwent left hydrocele repair. Bladder was inadvertently incised. Spent the next 6-8 weeks with infection and bladder repair. Left inguinal hernia repair Lower urinary tract symptoms Urinary hesitancy with dribbling Component of bladder instability with urinary urgency and frequency Erectile dysfunction Responsive to 5 mg daily tadalafil Nephrolithiasis/Urolithiasis:? They are here for?further evaluation of nephrolithiasis.? Urolithiasis was diagnosed?02/05/18 - seen at [facility] with left flank pain and heamturia - imaging had passed small stone.? The patient previously had kidney stones whose composition w?unknown ? 24 Hour urine evaluation?03/28 , Good Volume > 2.00 L, Hypercalciuria (> 200mg), High Sodium (> 100mEq), High oxalate > 30mg, High Citrate, Low urine pH < 5.5 ?03/29 , Good Volume > 2.00 L, high calcium and high oxalate - drinking iced tea ? Prior treatment(s) include?observation.? Prior imaging includes?01/26 , a CT (computed tomography) scan of the abdomen/pelvis (stone protocol), showing no evidence of stones - recent passage ?03/28 , a renal ultrasound, showing no evidence of stones - 07/02 renal ultrasound no stones, 08/03 no stones ? Current therapeutic plan will be?Multiple urinary abnormalities ?, to continue with imaging surveillance, ?General advice to maintain good fluid intake for urine greater than 1.5 L per day, reduce salt and reduce protein and acid loads was provided [facility] Medical History High cholesterol HTN (hypertension) Diabetes mellitus Erectile dysfunction due to diseases classified elsewhere Hypercalciuria Incomplete emptying of bladder Retrograde ejaculation Nontraumatic rupture of bladder Ureteral reimplantation hemorrhage Hydrocele in adult Hematuria Surgical History History of surgery Review of Systems Const All systems reviewed & are unremarkable except as noted in HPI and below Reports no additional complaints Resp Reports no additional complaints GI Reports no additional complaints Reports as per HPI Musc Reports no additional complaints Physical Exam Telemedicine evaluation Appropriate responses Regular breathing rate and rhythm HEENT Head: Yes normal to inspection Ears: hearing grossly normal bilaterally Eyes General: appearance normal, both eyes and all related structures Neck Neck: Yes normal visual inspection Chest Chest palpation & inspection: normal inspection of the chest Resp Effort & Inspection: normal respiratory effort and able to speak in complete sentences Telehealth Telehealth Location of provider rendering services: practice address Location of patient: address on file Patient Identification confirmed using: Name, : Yes Telehealth method: voice only Patient verbally consented to treatment: Yes Patient verbally consented to billing insurance company: Yes Patient informed of any privacy concerns related to visit: Yes Assessment & Plan Assessment & Plan (1) Overactive bladder: Code(s): N32.81 - Overactive bladder Category: Medical Plan Trial Myrbetriq Two month follow-up Medications: New mirabegron ER (Myrbetriq) 25 mg PO DAILY 30 days 30 tabs 1RF N30.10 - Interstitial cystitis (chronic) without hematuria, N32.81 - Overactive bladder, N32.89 - Other specified disorders of bladder, R35.1 - Nocturia, R39.15 - Urgency of urination Patient Instructions: This note is constructed using voice recognition software. While every effort has been made to ensure accuracy water main installer helper errors may have been included. Imaging studies, laboratory and physical exam results were discussed and reviewed in detail. No major barriers to patient understanding were identified. An opportunity to ask questions regarding the treatment plan was provided. All questions were answered. The patient expressed understanding and agreement with the above treatment plan. The patient is aware they should contact our office by phone for worsening of their current condition or the appearance of new urologic symptoms. Compliance is encouraged with any medications and followup testing that is ordered. It is a privilege to participate in the urologic care of your patient. If you have any questions or concerns regarding treatment for the above conditions, or other urologic issues, please do not hesitate to contact me. The office telephone contact is [phone]. Sincerely, Dr Martin Mckenzie MD, [facility] - Urology Compassionate Specialist Care for the Genitourinary System Coding Level of Care Code Tele Est Pt Level 4 (14307) Diagnoses Overactive bladder N32.81
--- OUTSIDE RECORDS SUMMARY | 2024-11-05 17:36 | XMS_ITS | Clinical Summary ---
Author Organization 175 [facility] Address [address] [place] [address] Phone Care Team Providers Care Stars Specialist Name Role Phone Rojas Martin MD Primary Care Provider [phone] Allergies No known active allergies Medications alcohol swabs pads, medicated 1 Units by Does not apply route 2 Times Daily. 11/27/19 20 Active blood-glucose meter (ONETOUCH ULTRAMINI MISC) Check sugar twice daily 04/30/20 14 Active miscellaneous medical supply misc CPAP by Nasal route at bedtime. BHIR-BIPAP pressure 25/06 Active MAGNESIUM CHLORIDE ORAL Take by mouth. Active DIETARY SUPPLEMENT ORAL CORTISOL OR Take by mouth Active CYANOCOBALAMIN, VITAMIN B-12, ORAL Take by mouth. Active ONETOUCH ULTRASOFT LANCETS MISC Use to check blood sugar twice a day 03/02/20 21 Active Lactobacillus acidophilus (PROBIOTIC ORAL) Take by mouth daily. Active cholecalciferol (VITAMIN D-3) 50 mcg (2,000 unit) capsule Take 1 capsule by mouth daily. 09/17/19 22 Active diclofenac (VOLTAREN) 1 % topical gel Apply 1 g topically at bedtime as needed (flank pain). 08/18/20 23 Active tadalafiL (CIALIS) 5 mg tablet TAKE ONE TABLET BY MOUTH EVERY DAY 12/01/19 21 Active urea-alpha hydroxy acids 10-4 % cream Apply 1 Act topically at bedtime. FOR 1 MONTH 04/12/20 24 Active Mounjaro 7.5 mg/0.5 mL injection INJECT 7.5 MG INTO THE SKIN ONCE A WEEK 2 mL 4 07/29/20 24 Active pravastatin (PRAVACHOL) 20 mg tablet Take 1 tablet (20 mg total) by mouth 1 (one) time each day. 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 Most recent hemoglobin A1c was 6.9 on September 14, 2021. Discussed in detail diet to help control his blood sugars. Encouraged a low-fat, lean protein, high-fiber, low carbohydrate diet. Discussed avoiding sweets and junk food. Decrease the amount of bread, rice, pasta and potatoes. Regular exercise also encouraged to help with weight loss and provide cardiovascular benefit. Recheck in 3 months. HTN (hypertension) 12/12/2007 Overview (07/09/2024): Last Assessment & Plan: Continue lisinopril 10 mg daily. Most recent CMP was normal. Normal urine microalbumin. Will continue to monitor blood pressures in office at next visit. Discussed dietary strategies to help control his blood pressure. Encouraged low- fat, lean protein, high-fiber, low-cholesterol, low carbohydrate diet. Regular exercise and weight loss also encouraged to help with blood pressure control. Recheck in 3 months. Hyperlipidemia 12/12/2007 Overview (07/09/2024): Last Assessment & Plan: Continue pravastatin 20 mg daily. Most recent lipid panel showed good control of total cholesterol, LDL cholesterol and HDL cholesterol. Slight increase in triglycerides at 160 but nothing acute. Discussed diet and exercise and weight loss. We will continue to monitor. Morbid obesity with BMI of 40.0-44.9, adult 09/12 Encounters Date Type Department Care Team Description 10/28/2024 2:45 PM EST Office Visit Orthopedic Surgery [facility] [address] [facility] [address] [place] [phone] Chris Hunt DPM Controlled type 2 diabetes with neuropathy (CMS/HCC) (Primary Dx); Difficulty walking; Pain in both feet; Arthritis of both feet 08/20/2024 Telephone General Surgery - [place] 175 [facility] [address] [place] [phone] Etienne Mercado, 08/19/2024 2:18 PM EST - 08/19/2024 11:59 PM EST Hospital Encounter CT Scan - [place] [address] [place] [address] Discharge Disposition: Home or Self Care 08/14/2024 Telephone [facility] 175 [facility] [address] [place] [phone] Viry Noguera [place] DME request (Order for revision of BIPAP sent to [facility]. Fax confirmation received) 08/09/2024 Telephone Adult Medicine - [address] [phone] Whit Rosenbaum [place] 08/05/2024 Telephone [facility] 175 [facility] [address] [place] [phone] Viry Noguera [place] DME rx revision (Dr. Peterson,/[facility] reached out stating patient called them and is having intolerance on his BiPAP machine, he would like to return to his original pressure but a new Rx is needed for this. Please send order so I can send it to [facility] .) from Last 3 Months Immunizations Name Administration Dates Next Due Pneumococcal polysaccharide 23 valent (Pneumovax 23) 2yo and older 11/30/2010 Td Tetanus diptheria (Tdvax) 7yo and older 05/08 Tdap Tetanus diptheria acell ular pertussis (Boostrix; Adacel) 7yo and older 12/12/2007 Surgical History Surgery Date Site/Laterality Comments COLONOSCOPY 2012 PROCEDURE: OH COLONOSCOPY FLX DX W/COLLJ SPEC WHEN PFRMD; COMMENT: normal OTHER SURGICAL HISTORY 11/12/14 Dr Hayward Left PROCEDURE: OH EXC HYDROCELE SPRMATIC CORD UNI SPX; COMMENT: complicated by hole in bladder HERNIA REPAIR 11/13/14 Left PROCEDURE: REPAIR INGUINAL HERNIA; COMMENT: Dr Godinez OTHER SURGICAL HISTORY 12/10/14 PROCEDURE: OH SLING OPERATION STRESS INCONTINENCE; COMMENT: Dr Hayward, then postop urosepsis CYSTOSCOPY 2017 PROCEDURE: OH CYSTOURETHROSCOPY Medical History Medical History Date Comments Unspecified sleep apnea 10/05/2005 DX:Unspe cified sleep apnea Obesity, unspecified 10/05/2005 DX:Obesity, unspecified Type II or unspecified type diabetes mellitus without mention of complication, not stated as uncontrolled 12/12/2007 DX:Type II or unspecified ty pe diabetes mellitus without mention of complication, not stated as uncontrolled Historical Medical DX 12/12/2007 DX:HTN History of kidney stones 06/10/2022 DX:Hist ory of kidney stones Family History Medical History Relation Name Comments Other: Other Brother half brother de tached retina Hypertension Father Hypertension Mother Blindness Neg Hx Cataracts Neg Hx Glaucoma Neg Hx Macular degeneration Neg Hx Strabismus Neg Hx Relation Name Status Comments Brother Alive x2, half bro guerrero s HTN/obesity Father Alive HTN Mother Strokes, HTN, & varient of LouGehrigs Sister Alive x2, healthy Social History Tobacco Use Types Packs/Day Years Used Date Smoking Tobacco: Former Cigarettes Q uit: 09/10/1998 Smokeless Tobacco: Never Alcohol Use Standard Drinks/Week Comments No 0 (1 standard drink = 0.6 oz pur e alcohol) Sex and Gender Information Value Date Recorded Sex Assigned at Not on file Legal Sex Male 12:16 AM EST Gender Identity Not on file Sexual Orientation Not on file Obstetrics History Last Filed Vital Signs Vital Sign Reading Time Taken Comments Blood Pressure 124/84 07/31/2024 2:58 PM EST Pulse 60 07/31/2024 2:58 PM EST Temperature 36.6 ??C (97.8 ??F) 07/31/2024 2:58 PM ES T Respiratory Rate - - Oxygen Saturation - - Inhaled Oxygen Concentration - - Weight 115 kg (253 lb) 10/28/2024 2:40 PM EST Height 180.3 cm (5' 10.98 ) 10/28/2024 2:[address] Body Mass Index 35.3 10/28/2024 2:40 PM EST Plan of Treatment Upcoming Encounters Date Type Department Care Team (Late st Contact Info) Description 11/15/2024 11:30 AM EST Office Visit Internal Medicine - [facility] [address] [place] [address] Rojas Martin MD [address] [place] [address] 12/06/2024 2:15 PM EDT Office Visit Pulmonolgy - [place] 175 [facility] [address] [place] [phone] Verna Peterson MD 175 [facility] [address] [place] [address] 01/23/2025 3:00 PM EDT Office Visit Orthopedic Surgery - [place] 250 [address] [facility] [address] [place] [phone] Chris Hunt DPM [address] [address] Health Maintenance Due Date Last Done Comments Diabetes: Annual Foot Exam 1970 Zoster Vaccines (1 of 2) 2010 Pneumococcal Vaccine: 50+ Years (2 of 2 - PCV) 12/01/2011 11/30/2010 Pneumococcal Vaccine: Pediatrics (0 to 5 Years) and At-Risk Patients (6 to 64 Years) (2 of 2 - PCV) 12/01/2011 11/30/2010 RSV Immunization Patients 60 + Years Old (1 - Risk 60-74 years 1-dose series) 2020 Depression Screening 08/20/2022 HIV Screening 08/20/2022 Social Influencers of Health Screening 08/20/2022 COVID-19 Vaccine (3 - 2023-2 5 season) 2024 12/18/2020, 11/27/2020 Influenza Vaccine (#1) 2024 Diabetes: Annual Urine Albumin-Creatinine Ratio (uACR) 10/31/2024 10/31/2023 Diabetes: Blood Sugar Contro l Test (HGBA1C) 01/02/2025 07/04/2024, 07/04/2024, 02/23/2024 Diabetes: Annual Retina Eye Exam 06/28/2025 06/28/2024 Diabetes: Annual GFR (Glomerular Filtration Rate) 08/12/2025 08/12/2024, 07/04/2024, 07/04/2024 Hypertension/CHF/CAD Annual BMP Blood Test 08/12/2025 08/12/2024, 07/04/2024, 07/04/2024 DTaP,Tdap,and Td Vaccines (3 - Td or Tdap) 05/08/2028 05/08/2018, 12/12/2007 Cholesterol Screening (Lipid Panel) 07/05/2029 07/05/2024, 07/05/2024 Colorectal Cancer Screening: Colonoscopy 01/11/2034 01/12/2024 Hepatitis C Screening Completed 07/19/2013 HIB Vaccines Aged Out No longer eligi ble based on patient's age to complete this topic HPV Vaccines Aged Out No longer eligi ble based on patient's age to complete this topic Hepatitis A Vaccines Aged Out No long er eligible based on patient's age to complete this topic Hepatitis B Vaccines Aged Out No long er eligible based on patient's age to complete this topic IPV Vaccines Aged Out No longer eligi ble based on patient's age to complete this topic MMR Vaccines Aged Out No longer eligi ble based on patient's age to complete this topic Meningococcal ACWY Vaccine Aged Out N o longer eligible based on patient's age to complete this topic Meningococcal B Vacine Aged Out No lo nger eligible based on patient's age to complete this topic RSV Immunization Patients Under 20 months Aged Out No longer eligible b ased on patient's age to complete this topic Varicella Vaccines Aged Out No longer eligible based on patient's age to complete this topic Procedures Procedure Name Priority Date/Time Associated Diagnosis Comments CT ABDOMEN PELVIS W CONTRAST Routine 08/19/2024 2:30 PM EST Ventral hernia without obstruction or gangrene BUN Routine 08/12/2024 4:29 PM EST Type II diabetes mellitus with renal manifestations (CMS/HCC) Hyperlipidemia CREATININE, SERUM Routine 08/12/2024 4:2 9 PM EST Type II diabetes mellitus with renal manifestations (CMS/HCC) Hyperlipidemia LIPID PANEL Routine 07/05/2024 HEMOGLOBIN A1C Routine 07/04/2024 HM DIABETES EYE EXAM Routine 06/28/2024 HM COLONOSCOPY Routine 01/12/2024 HM URINE ALBUMIN CREATININE RATIO Routine 10/31/2023 HEPATITIS C SCREENING Routine 07/19/2013 from Last 3 Months or Most Recently Relevant to Health Maintenance Results * CT Abdomen Pelvis w Contrast (08/19/2024 2:30 PM EST) Anatomical Region Laterality Modality Body Computed Tomogra phy 08/19/2024 3:06 PM EST Impressions 08/19/2024 3:25 PM EST Predominantly fat-containing umbilical hernia sac measuring 8.1 x 7.1 cm with hernial neck measuring 3.0 x 2.4 cm. ??No bowel loops insinuates into the hernial sac. -------- FINAL REPORT -------- Dictated By: Amy Wang Dictated Date: 08/19/2024 15:06 ET Assigned Physician: Amy Wang Reviewed and Electronically Signed By: Amy Wang Signed Date: 08/19/2024 15:25 ET Workstation ID: [id number] Transcribed By: Self Edit Transcribed Date: 08/19/2024 15:06 ET Narrative 08/19/2024 3:[address] ABDOMEN PELVIS W CONTRAST TECHNIQUE: Multidetector-row CT of the abdomen and pelvis was performed after administration of intravenous contrast (90 cc of Isovue-370) using tailored dose modulation techniques. Images were reconstructed in the axial, coronal, and sagittal planes. COMPARISON: Abdomen/pelvis on July 16, 2018. HISTORY: Ventral hernia FINDINGS: Lower Chest: Lung bases are clear. ??No pleural effusions. Liver: No focal lesions Biliary: Normal gallbladder. ??No biliary ductal dilatation. Spleen: No splenomegaly. ??No focal lesions. ? Pancreas: No focal lesions. ??No ductal dilatation. Adrenal Glands: No nodules. Kidneys/Ureters: No solid-appearing focal lesion or hydronephrosis. Bowel: Orally administered contrast has reached the ileal loops. ??No bowel distention. ??Normal appendix identified extending to the right upper quadrant near the liver. ??Scattered diverticula along the sigmoid colon. Peritoneum/Retroperitoneum: No free fluid or free air. Lymph Nodes: No lymphadenopathy. Pelvic Organs/Bladder: Partially distended urinary bladder appears unremarkable. ??Prostatomegaly. Vessels: No abdominal aortic aneurysm. ??Atherosclerotic disease with moderate amount of calcifications. Bones/Soft Tissues: No destructive bone lesions. ??Similar appearance of the predominantly fat-containing left side direct and indirect inguinal hernias. ??Predominantly fat-containing umbilical hernia with neck measuring 3.0 x 2.4 cm (2:101, sagittal 80,349:92), with the hernial sac that measures 8.1 cm transversely by 7.1 cm height, enlarged from prior re-measurements of 6.6 x 6.3 cm respectively. Procedure Note Amy Wang MD - 08/19/2024 CT ABDOMEN PELVIS W CONTRAST TECHNIQUE: Multidetector-row CT of the abdomen and pelvis was performedafter administration of intravenous contrast (90 cc of Isovue-370) usingtailored dose modulation techniques. Images were reconstructed in theaxial, coronal, and sagittal planes. COMPARISON: Abdomen/pelvis on July 16, 2018. HISTORY: Ventral hernia FINDINGS: Lower Chest: Lung bases are clear. No pleural effusions. Liver: No focal lesions Biliary: Normal gallbladder. No biliary ductal dilatation. Spleen: No splenomegaly. No focal lesions. Pancreas: No focal lesions. No ductal dilatation. Adrenal Glands: No nodules. Kidneys/Ureters: No solid-appearing focal lesion or hydronephrosis. Bowel: Orally administered contrast has reached the ileal loops. No boweldistention. Normal appendix identified extending to the right upperquadrant near the liver. Scattered diverticula along the sigmoid colon. Peritoneum/Retroperitoneum: No free fluid or free air. Lymph Nodes: No lymphadenopathy. Pelvic Organs/Bladder: Partially distended urinary bladder appearsunremarkable. Prostatomegaly. Vessels: No abdominal aortic aneurysm. Atherosclerotic disease withmoderate amount of calcifications. Bones/Soft Tissues: No destructive bone lesions. Similar appearance ofthe predominantly fat-containing left side direct and indirect inguinalhernias. Predominantly fat-containing umbilical hernia with neckmeasuring 3.0 x 2.4 cm (2:101, sagittal 80,349:92), with the hernial sacthat measures 8.1 cm transversely by 7.1 cm height, enlarged from priorre-measurements of 6.6 x 6.3 cm respectively. IMPRESSION: Predominantly fat-containing umbilical hernia sac measuring 8.1 x 7.1 cmwith hernial neck measuring 3.0 x 2.4 cm. No bowel loops insinuates intothe hernial sac. -------- FINAL REPORT -------- Dictated By: Amy Wang Dictated Date: 08/19/2024 15:06 ET Assigned Physician: Amy Wang Reviewed and Electronically Signed By: Amy Wang Signed Date: 08/19/2024 15:25 ET Workstation ID: [id number] Transcribed By: Self Edit Transcribed Date: 08/19/2024 15:06 ET us Etienne Mercado DO IMG CT PROCEDURES Final Result * Creatinine (08/12/2024 4:29 PM EST) Creatinine 0.71 0.70 - 1.30 mg/dL LAB CHEMISTRY METHOD 08/12/2024 6:13 PM EST [facility] eGFR 103 >=60 mL/min/1. 73m2 LAB CHEMISTRY METHOD 08/12/2024 6:13 PM EST [facility] Comment:Calculation based on the??Chronic Kidney Disease Epidemiology Collaboration (CKD-EPI) equation refit??without adjustment for race. Blood Venous blood specimen / Unknown Venipuncture / Unknown 08/12/2024 4:29 PM EST 08/12/2024 4:29 PM EST Etienne Allan Rogelio DO LAB BLOOD ORDERABLES Final Res ult [facility] [address] [place] [address], [place] [phone] * BUN (08/12/2024 4:29 PM EST) [facility] BUN 21 5 - 25 mg/dL LAB CHEMISTRY METHOD 08/12/2024 6:13 PM EST [facility] Blood Venous blood specimen / Unknown Venipuncture / Unknown 08/12/2024 4:29 PM EST 08/12/2024 4:29 PM EST [facility] Rogel[facility] LAB BLOOD ORDERABLES Final Res ult Performing Organization Address City/[facility]/ZIP Co de Phone Number [facility] [address] [place] [address], [place] [phone] * Lipid panel (07/05/2024) [facility] LDL/HDL Ratio 3 0 - 4 Triglycerides 112 0 - 150 mg/dL Cholesterol 169 0 - 200 mg/dL HDL 65 >=40 mg/dL LDL Cholesterol 82 0 - 100 mg/dL Blood Venous blood specimen / Unknown Historical Provider LAB BLOOD ORDERABLES Agata l Result * Hemoglobin A1c (07/04/2024) [facility] Hemoglobin A1C 6.2 <=6.5 % Blood Venous blood specimen / Unknown Historical Provider LAB BLOOD ORDERABLES Agata l Result * Diabetes Eye Exam (06/28/2024) [facility] Diabetes: Annual Retina Eye Exam Abstracted Historical Provider HEALTH MAINTENANCE Final Result * Hm Colonoscopy (01/12/2024) [facility] Colonoscopy No Interpretation , Abstracted Anatomical Region Laterality Modality Other Historical Provider HEALTH MAINTENANCE Final Result * Urine Albumin Creatinine Ratio (10/31/2023) Urine Albumin Creatinine Ratio Abstracted Historical Provider HEALTH MAINTENANCE Final Result * Hepatitis C Screening (07/19/2013) Hepatitis C Screening Abstracted Historical Provider HEALTH MAINTENANCE Final Result from Last 3 Months or Most Recently Relevant to Health Maintenance Insurance [facility] Care Teams Stars Specialist Relationship Specialty Start Date End Date Rojas Martin MD [address] [place] [id number] PCP - General Internal Medicine 07/16/20
--- OUTSIDE RECORDS SUMMARY | 2024-11-05 17:36 | XMS_ITS ---
Author Organization [facility]elsa qian Ider Address [address] [place] [address] Care Team Providers Care Blood Bank Booking Clerk Name Role Phone Rojas Martin M.D. 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 Generated for Natanaeli maylin/Dmitry/eTransmitting on:?11/05/2024 05:36 PM EST
--- OUTSIDE RECORDS SUMMARY | 2024-11-05 17:36 | XMS_ITS ---
Author Organization [facility] Address [address] [place] [address] Care Team Providers Care Treer Name Role Phone AUSTYN DESTINEY CRISTIN Unavailable [phone] SHUKRI KAT Unavailable [phone] ALLERGIES No Known Allergies REASON FOR VISIT [...] day do you smoke? 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 PROBLEMS Problem Type ICD Code Onset Dates Problem Status W/U Status Risk SNOMED Code Notes Problem BMI 36.0-36.9,ad ult (Z68.36) Active confirmed [id number] VITAL SIGNS Blood pressure systolic 132 mm Hg 12/22/19 24 Blood pressure diastolic 84 mm Hg 024 Heart Rate 58 /min 12/22/2023 Height 71 in 12/22/2023 Weight 263 lbs 12/22/2023 BMI 36.68 kg/m2 12/22/2023 Oximetry 94 % 12/22/2023 Encounters Encounter Location Date Provider Diagnosis [facility] [address] [place] [address] 12/22/2023 SHUKRI KAT Obesity (BMI 30-39.9 ) [...] Dictation was accomplished with the use of C3Nano voice recognition software, prone to medical misidentifications [...] Dictation was accomplished with the use of C3[employer] voice recognition software, prone to medical misidentifications [...] Dictation was accomplished with the use of C3[employer] voice recognition software, prone to medical misidentifications [...] Dictation was accomplished with the use of [employer] voice recognition software, prone to medical misidentifications [...] Dictation was accomplished with the use of C3[employer] voice recognition software, prone to medical misidentifications and grammatical errors. This is unintentional and the practitioner does try to identify and correct these, but some could still be present. Please do not hesitate to contact practitioner for clarification. PLAN OF TREATMENT No Information Progress Notes * Norma ALBA:1960 ([age] yo M)Acc No.[id number]:12/22/2023 Patient:??Colt ALBA Provider:??SHUKRI KAT PA-C :1960?Age:63 Y?Sex:Toby jose Date:12/22/2023 Address:[address] [place] [address] [id number] Subjective: * Chief Complaints: * ?1. 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 This is unintentional and the practitioner does try to identify and correct these, but some could still be present. Please do not hesitate to contact practitioner for clarification. Plan: * Treatment: * Images: Billing Information: * Visit Code:?? 39316 Office Visit, Est Pt., Level 3. Modifiers: [...]
--- OUTSIDE RECORDS SUMMARY | 2024-11-05 17:36 | XMS_ITS | Encounter Summary ---
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); Lumbosacral radiculopathy; Arthritis of both feet Encounter Details Date Type Department Care Team (Late st Contact Info) Description 10/28/2024 2:45 PM EST Office Visit Orthopedic Surgery [place] [address] [phone] Chris Hunt, DP [address] [address] Controlled type 2 diabetes with neuropathy (CMS/HCC) (Primary Dx); Difficulty walking; Pain in both feet; Arthritis of both feet Social History Tobacco Use Types Packs/Day Years [...] on file Sexual Orientation Not on file documented as of this encounter Last Filed Vital Signs Vital Sign Reading Time Taken Comments Blood Pressure - - Pulse - - Temperature - - Respiratory Rate - - Oxygen Saturation - - Inhaled Oxygen Concentration - - Weight 115 kg (253 lb) 10/28/2024 2:40 PM EST Height 180.3 cm (5' 10.98 ) 10/28/2024 2:[address] Body Mass Index 35.3 10/28/2024 2:40 PM EST documented in this encounter Progress Notes * Chris Hunt DPM - 10/28/2024 2:45 PM EST Referring MD: Mario Last PCP visit: 07/05/2024 IDENTIFIER: @TITLE@ Carmencita is a 63 y.o. year old male who presents for consultation. CC: Bilateral foot pain HPI: 63-year-old diabetic male returns office for bilateral foot pain. Patient was given injections 3 months ago to the left foot and notes that he has been doing well with his left foot. 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 Patient has recently been having increased amounts of pain to the right lateral foot and to the plantar aspect of the right great toe. Patient is here for evaluation treatment ROS: GENERAL: Pt denies nausea, fever, vomiting, chills, or shortness of breath. Pt in NAD. CARDIOLOGY: pt denies chest pain, palpitations LUNGS: pt denies shortness of breath MUSCULOSKELETAL: See HPI, otherwise no joint pain or swelling, back pain, or muscle pain. SKIN: see HPI, otherwise no lesions, rash or itching NEURO: No persistent headache, weakness or numbness The remainder of the review of systems is noncontributory PAST MEDICAL HISTORY: Patient Active Problem List Diagnosis Type II diabetes mellitus with renal manifestations ([facility]) Helicobacter pylori stool test positive HTN (hypertension) Hydrocele, left Hyperlipidemia Microalbuminuria Obstructive sleep apnea syndrome Umbilical hernia Morbid obesity with BMI of 40.0-44.9, adult ([facility]) SOCIAL HISTORY: Social History Tobacco Use Smoking status: Former Current packs/day: 0.00 Types: Cigarettes Quit date: 09/10/1998 Years since quittin.1 Smokeless tobacco: Never Substance Use Topics Alcohol use: No ACTIVE MEDICATIONS: Outpatient Medications Marked as Taking for the 10/28/24 encounter (Office Visit) with Chris Hunt DPM Medication Sig Dispense Refill alcohol swabs pads, medicated 1 Units by Does not apply route 2 Times Daily. blood-glucose meter ([employer] ULTRAMINI [employer]) Check sugar twice daily cholecalciferol (VITAMIN D-3) 50 mcg (2,000 unit) capsule Take 1 capsule by mouth daily. CYANOCOBALAMIN, VITAMIN B-12, ORAL Take by mouth. diclofenac (VOLTAREN) 1 % topical gel Apply 1 g topically at bedtime as needed (flank pain). DIETARY SUPPLEMENT ORAL CORTISOL OR Take by mouth Lactobacillus acidophilus (PROBIOTIC ORAL) Take by mouth daily. lisinopriL (PRINIVIL,ZESTRIL) 10 mg tablet TAKE ONE TABLET BY MOUTH DAILY 90 tablet 1 MAGNESIUM CHLORIDE ORAL Take by mouth. miscellaneous medical supply [facility] CPAP by Nasal route at bedtime. BHIR-BIPAP pressure 15/10 Mounjaro 7.5 mg/0.5 mL injection INJECT 7.5 MG INTO THE SKIN ONCE A WEEK 2 mL 4 ONETOUCH ULTRASOFT LANCETS [facility] [place] Use to check blood sugar twice a day pravastatin (PRAVACHOL) 20 mg tablet Take 1 tablet (20 mg total) by mouth 1 (one) time each day. 90tablet 1 tadalafiL (CIALIS) 5 mg tablet TAKE ONE TABLET BY MOUTH EVERY DAY urea-alpha hydroxy acids 10-4 % cream Apply 1 Act topically at bedtime. FOR 1 MONTH ALLERGIES: @ALL@ PHYSICAL EXAM: Height 1.803 m (70.98 ), weight 115 kg (253 lb). PODIATRIC EXAMINATION: GENERAL: Patient appears well nourished, with NAD. VASCULAR: Dorsalis pedis pulses are 2/4 bilaterally and Posterior tibial pulses are 2/4 bilaterally. Capillary filling time within normal limits the digits. No pallor on elevation or rubor on dependency. Positive hair growth. No varicosities. Denies rest pain or claudication pain. NEUROLOGICAL: Sharp/dull sensation diminished, protective sensation diminished on [place]. Multipleperipheral neuropathies bilateral lower extremities ORTHOPEDIC: Good muscle strength 5/5 of all flexors and extensors. Dorsi flexion of ankle ,10 degrees, plantar flexion WNL. No muscle atrophy. Continued arthritic changes to the midfoot bilaterally with dorsal palpable exostoses bilaterally. Flexible flatfoot deformity with greater than 5 degrees eversion on relaxed calcaneal stance position. No longer having pain on palpation of the fifth and fourth metatarsal cuboid joint. Pain on palpation of the base of the fifth metatarsal on the right foot and pain on the plantar aspect of the right great toe DERMATOLOGICAL:.No masses or skin lesions noted. Normal skin temperature, normal skin turgor. Nailsare thickened and from the underlying nailbed and the great toes bilaterally BIOMECHANICS: STJ ROM wnl, MTJ ROM wnl, 1st MPJ ROM wnl. IMPRESSION: 1. Controlled type 2 diabetes with neuropathy (CMS/HCC) 2. Difficulty walking 3. Pain in both feet 4. Arthritis of both feet PLAN: Pt was seen and examined, history reviewed. 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 Patient is having new pain develop over the lateral aspectof the right foot which may be coming from wear patterns on the lateral aspect of the sole. Patientencouraged to purchase new shoes in order to support and decrease inversion of the foot during mid stance and propulsion Patient's arthritic changes to the left foot did not require injections during today's visit. Patient is able to use topical anti-inflammatory medication in order to help with the pain when needed Chris Hunt DPM documented in this encounter Plan of Treatment Upcoming Encounters Date Type Department Care Team (Late st Contact Info) Description 11/15/2024 11:30 AM EST Office Visit Internal Medicine - [address] [address] Rojas Martin MD [address] [place] [phone] 12/06/2024 2:15 PM EDT Office Visit Pulmonolgy - [place] [address] [phone] Verna Peterson MD [address] [address] 01/23/2025 3:00 PM EDT Office Visit Orthopedic Surgery - [place] [address] 175 [facility] [address] [place] [address] Chris Hunt, ANGELA 175 [facility] [address] [place] [address] documented as of this encounter Visit Diagnoses Diagnosis Controlled type 2 diabetes with neuropathy ([facility])- Primary Type II or unspecified type diabetes mellitus with neurological manifestations, not stated as uncontrolled Difficulty walking Difficulty in walking Pain in both feet Arthritis of both feet documented in this encounter Discontinued Medications Medication Sig Discontinue Reason Start Date End Da te alfuzosin (UROXATRAL) 10 mg 24 hr tablet 10/28/2024 documented as of this encounter Care Teams Welder/Fitter Relationship Specialty Start Date End Date Rojas Martin MD [address] [place] [phone] PCP - General Internal Medicine 07/16/20 documented as of this encounter
--- OUTSIDE RECORDS SUMMARY | 2024-11-05 17:36 | XMS_ITS ---
Author Organization [facility] Address [address] [place] [address] Care Team Providers Care Tool Mechanic Name Role Phone CRISTIN RAMIREZ Unavailable [phone] SHUKRI KAT Unavailable [phone] Encounters Encounter Location Date Provider Diagnosis [facility] [address] [place] [address] 11/10/2023 SHUKRI KAT PLAN OF TREATMENT No Information Progress Notes * Guy ALBAGabrielOB:1960 ([age] yo M)Acc No.[id number]:11/10/2023 Patient:??Colt ALBA Provider:??SHUKRI KAT PA-C :1960?Age:63 Y?Sex:Toby jose Date:11/10/2023 Address:[address] [place], [place] [phone] Subjective: * Chief Complaints: * ? * Medical History:?? Objective: Assessment: Plan: * Treatment: * Images: Billing Information: * Visit Code:?? * Procedure Codes:?? * Sign off status: Pending * Provider:??SHUKRI KAT PA-C Date:??0309/2023
--- OUTSIDE RECORDS SUMMARY | 2024-11-05 17:36 | XMS_ITS | Patient Health Record ---
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 PROBLEMS Problem Type ICD Code Onset Dates Problem Status W/U Status Risk SNOMED Code Notes Problem Type 2 diabetes mellitus without complications (E11.9) Active confirmed Type II diabetes mellitus without complication (026089079) Problem Obesity (BMI 30-39.9) (E66.9) Active confirmed Obesity (316727682) Problem BMI 37.0-37.9, adult (Z68.37) Active confirmed Obese class I I (39793359371847 5) Problem Umbilical hernia without mention of obstruction or gangrene (K42.9) Active confirmed Umbilical hernia (553018852) Problem BMI 36.0-36.9,adult (Z68.36) Active confirmed 577645392 Problem BMI 38.0-38.9,adult (Z68.38) Active confirmed Obese class II (31790020772126 5) Problem Hypertension, essential (I10) Active confirmed Essential hypertension (13693939) VITAL SIGNS Heart Rate 58 /min 12/22/2023 Oximetry 94 % 12/22/2023 Blood pressure diastolic 84 mm Hg 12/22/2023 Height 71 in 12/22/2023 Blood pressure systolic 132 mm Hg 12/22/2023 Weight 263 lbs 12/22/2023 BMI 36.68 kg/m2 12/22/2023 Encounters Encounter Location Date Provider Diagnosis [facility] [address] [place] [address] 11/10/2023 SHUKRI KAT [facility] [address] [place] [address] 02/23/2024 [facility] [address] [place] [phone] 12/22/2023 SHUKRI SHEY Obesity (BMI 30-39.9 ) [...] Dictation was accomplished with the use of Socratic voice recognition software, prone to medical misidentifications [...] Dictation was accomplished with the use of Socratic voice recognition software, prone to medical misidentifications [...] Dictation was accomplished with the use of Socratic voice recognition software, prone to medical misidentifications [...] Dictation was accomplished with the use of Socratic voice recognition software, prone to medical misidentifications [...] Dictation was accomplished with the use of Socratic voice recognition software, prone to medical misidentifications and grammatical errors. This is unintentional and the practitioner does try to identify and correct these, but some could still be present. Please do not hesitate to contact practitioner for clarification. PLAN OF TREATMENT No Information Insurance Providers Payer Name Payer Address Payer Phone Subscriber Number Group Number Insured Name Patient Relationship to Insured Coverage Start Date Coverage End Date [facility] [address] [place] [address] [phone] [id number] Carmencita Colt Self - patient is the insured 2 MEDICAL (GENERAL) HISTORY Medical History History ICD Code high blood pressure diabetes mellitus kidney stones
--- OUTSIDE RECORDS SUMMARY | 2024-11-05 17:36 | XMS_ITS | Patient Health Record ---
Author Organization [facility] [place] Address [address] [place] [address] Care Team Providers Care Medical Manager Name Role Phone Rojas Martin M.D. Primary Care Provider Unavailable Virgen Solis Unavailable [phone] Reason For Referral No Information Plan Of Treatment No Information Insurance Providers Payer Name Payer Address Payer Phone Subscriber Number Group Number Insured Name Patient Relationship to Insured Coverage Start Date Coverage End Date [facility] [address] [place] [address] [id number] Colt Tse Self - patient is the insured
--- OUTSIDE RECORDS SUMMARY | 2024-11-05 17:36 | XMS_ITS ---
Author Organization [facility] Address [address] [place] [address] Care Team Providers Care Vibrating Screen Operator Name Role Phone CRISTIN RAMIREZ Unavailable SHUKRI KAT Unavailable [phone] Encounters Encounter Location Date Provider Diagnosis [facility] [address] [place] [address] 02/23/2024 SHUKRI KAT PLAN OF TREATMENT No Information Progress Notes * Guy ALBAGabrielOB:1960 ([age] yo M)Acc No.[id number]:02/23/2024 Patient:??Colt ALBA Provider:??SHUKRI KAT PA-C :1960?Age:63 Y?Sex:Toby jose Date:02/23/2024 Address:[address] [place] [phone] Subjective: * Chief Complaints: * ? * Medical History:?? Objective: Assessment: Plan: * Treatment: * Images: Billing Information: * Visit Code:?? * Procedure Codes:?? * Sign off status: Pending * Provider:??SHUKRI KAT PA-C Date:??02/09
--- OUTSIDE RECORDS SUMMARY | 2024-11-05 17:37 | XMS_ITS ---
Author Organization [facility] Address [address] [place] [address] Care Team Providers Care Inspector Tester Sorter Name Role Phone Mario Vega, Rojas Primary Care Provider Unavailable Virgen Solis [phone] Encounters Encounter Location Date Provider Diagnosis [address] [address] 10/27/2023 Virgen Solis Plan Of Treatment No Information Progress Notes * Colt ALBA MDOB:1960 (63 yo M)Acc No.[id number]:10/27/2023 Progress Notes Patient:?Colt ALBA Provider:?Virgen Solis DPM :1960???Age:62 Y???Sex:Male Joe e:10/27/2023 Address:[address] [place], [place] [phone] Pcp:Radhika Juarez Subjective: * Chief Complaints: * ??? * Medical History:? Objective: * Vitals:? Assessment: Plan: * Treatment: * Images: * The named appointment provid er may or may not be the originator of this progress note, and it is not deemed complete until electronically signed by the appointment provider. Sign off status: Pending * Provider:Mone Solis DPM Date:?2023 Generated for Madhu carlisle/Dmitry/Stephaniitting on:?11/05/2024 05:36 PM EST
== END 2024-11-05 14:55 | disposition home or self-care (01) ==
LOC: HO.HUSH 14:04
PROVIDERS: PCP Internal Medicine; Visit Provider Urology
DX: N32.81 Overactive bladder (principal)
CPT/HCPCS: 99214

== ENCOUNTER 2025-02-07 11:25 | Outpatient (AMB) | payer BC, SELFPAY ==
--- NOTE | 2025-02-07 11:25 | MHC.OFFVIS ---
Intake Visit Reasons: follow up/med review Intake Note: Patient is present for MED REVIEW F/U Urology Medication:TADALAFIL,MIRABEGRON Antibiotic Allergy:NONE Blood Thinner:NONE Dredge Lever Operator Required: No Allergies No Known Allergies (No Known Allergies*) Allergy (Verified 02/07/25 11:26) HPI Comments Details: Colt ALBA is a very pleasant male. He is a patient of Dr Lopez. He is seen in the office today for the following urologic conditions. - nephrolithiasis - erectile dysfunction - lower urinary tract symptoms Telemedicine Evaluation 15 min Consultation [employer] Two month follow-up trial high-dose Toviaz - mild benefit Will trial Myrbetriq - 2 month follow-up Reasonable prior response to Cialis 5 mg for stability ?He has a complicated medical history. ?March 2013 underwent left hydrocele repair. Bladder was inadvertently incised. Spent the next 6-8 weeks with infection and bladder repair. Left inguinal hernia repair Lower urinary tract symptoms Urinary hesitancy with dribbling Component of bladder instability with urinary urgency and frequency Mild improvement with Toviaz Erectile dysfunction Responsive to 5 mg daily tadalafil Nephrolithiasis/Urolithiasis:? They are here for?further evaluation of nephrolithiasis.? Urolithiasis was diagnosed?02/05/18 - seen at [facility] with left flank pain and heamturia - imaging had passed small stone.? The patient previously had kidney stones whose composition w?unknown ? 24 Hour urine evaluation?03/28 , Good Volume > 2.00 L, Hypercalciuria (> 200mg), High Sodium (> 100mEq), High oxalate > 30mg, High Citrate, Low urine pH < 5.5 ?03/29 , Good Volume > 2.00 L, high calcium and high oxalate - drinking iced tea ? Prior treatment(s) include?observation.? Prior imaging includes?01/26 , a CT (computed tomography) scan of the abdomen/pelvis (stone protocol), showing no evidence of stones - recent passage ?03/28 , a renal ultrasound, showing no evidence of stones - 07/02 renal ultrasound no stones, 08/03 no stones ? Current therapeutic plan will be?Multiple urinary abnormalities ?, to continue with imaging surveillance, ?General advice to maintain good fluid intake for urine greater than 1.5 L per day, reduce salt and reduce protein and acid loads was provided [facility] Medical History High cholesterol HTN (hypertension) Diabetes mellitus Erectile dysfunction due to diseases classified elsewhere Hypercalciuria Incomplete emptying of bladder Retrograde ejaculation Nontraumatic rupture of bladder Ureteral reimplantation hemorrhage Hydrocele in adult Hematuria Surgical History History of surgery Review of Systems Const All systems reviewed & are unremarkable except as noted in HPI and below Reports no additional complaints Resp Reports no additional complaints GI Reports no additional complaints Reports as per HPI Musc Reports no additional complaints Physical Exam Telemedicine evaluation Appropriate responses Regular breathing rate and rhythm HEENT Head: Yes normal to inspection Ears: hearing grossly normal bilaterally Eyes General: appearance normal, both eyes and all related structures Neck Neck: Yes normal visual inspection Chest Chest palpation & inspection: normal inspection of the chest Resp Effort & Inspection: normal respiratory effort and able to speak in complete sentences Telehealth Telehealth Location of provider rendering services: practice address Location of patient: address on file Patient Identification confirmed using: Name, : Yes Telehealth method: voice only Patient verbally consented to treatment: Yes Patient verbally consented to billing insurance company: Yes Patient informed of any privacy concerns related to visit: Yes Assessment & Plan Assessment & Plan (1) Erectile dysfunction associated with type 2 diabetes mellitus: Code(s): E11.69 - Type 2 diabetes mellitus with other specified complication; N52.1 - Erectile dysfunction due to diseases classified elsewhere Category: Medical (2) Bladder instability: Code(s): N32.89 - Other specified disorders of bladder Category: Medical (3) Overactive bladder: Code(s): N32.81 - Overactive bladder Category: Medical Plan Trial B agonist - will call if successful Plan Renal US Orders: Orders US renal BI 6 Months N20.0 - Calculus of kidney Medications: Changed From mirabegron ER 25 mg PO DAILY 30 days 30 tabs 1RF N32.89 - Other specified disorders of bladder, N32.81 - Overactive bladder To mirabegron ER (Myrbetriq) 25 mg PO DAILY 90 tabs 1RF 90 days N32.89 - Other specified disorders of bladder, N32.81 - Overactive bladder Refilled tadalafil (Cialis) 5 mg PO DAILY 90 tabs 1RF 90 days E11.69 - Type 2 diabetes mellitus with other specified complication, N52.1 - Erectile dysfunction due to diseases classified elsewhere Discontinued fesoterodine ER Discontinued Reason: Patient Completed Course 8 mg PO DAILY 30 days 30 tabs 1RF Patient Instructions: This note is constructed using voice recognition software. While every effort has been made to ensure accuracy scientific software engineer errors may have been included. Imaging studies, laboratory and physical exam results were discussed and reviewed in detail. No major barriers to patient understanding were identified. An opportunity to ask questions regarding the treatment plan was provided. All questions were answered. The patient expressed understanding and agreement with the above treatment plan. The patient is aware they should contact our office by phone for worsening of their current condition or the appearance of new urologic symptoms. Compliance is encouraged with any medications and followup testing that is ordered. It is a privilege to participate in the urologic care of your patient. If you have any questions or concerns regarding treatment for the above conditions, or other urologic issues, please do not hesitate to contact me. The office telephone contact is [phone]. Sincerely, Dr Martin Mckenzie MD, [facility] - Urology Compassionate Specialist Care for the Genitourinary System Coding Level of Care Code Tele Est Pt Level 3 (27991) Diagnoses Erectile dysfunction associated with type 2 diabetes mellitus E11.69; N52.1 Bladder instability N32.89 Overactive bladder N32.81
--- OUTSIDE RECORDS SUMMARY | 2025-02-07 12:19 | XMS_ITS | Patient Health Record ---
Author Organization [facility] [address] Address [address] [place] [address] Care Team Providers Care Linux Security Administrator Name Role Phone CRISTIN RAMIREZ Unavailable [phone] SHUKRI WINCHESTER Unavailable [phone] Allergies No Known Allergies Reason For Referral No Information Medications Medication SIG (Take, Route, Frequency, Duration) Notes [...] Probiotic 250 MG as directed Orally Active Social History Tobacco Use: Social History Observation Description Date Details (start date - stop date) Current Smoker NA - NA Tobacco Use/Smoking Question Answer Notes Are you a current smoker How often do you smoke cigarettes? every day How many cigarettes a day do you smoke? -30 Alcohol Screen (Audit-C) Question Answer Notes Did you have a drink containing alcohol in the p ast year? 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 email operations manager smokes 1 pack a day for 20 years email operations manager smokes 1 pack a day for 20 years email operations manager smokes 1 pack a day for 20 years Problems Problem Type SNOMED Code ICD Code Onset Dates Problem Status W/U Status Risk Notes Problem Type II diabetes mellitus without complication (770034233) Type 2 diabetes mellitus without complications (E11.9) Active confirmed Problem Obesity (948063208) Obesity (BMI 30-39.9) (E66.9) Active confirmed Problem Obese class II (515018832653458 ) BMI 37.0-37.9, adult (Z68.37) Active confirmed Problem Umbilical hernia (004384688) Umbilical hernia without mention of obstruction or gangrene (K42.9) Active confirmed Problem 648000305 BMI 36.0-36.9,adult (Z68.36) Active confirmed Problem Obese class II (149781861552690 ) BMI 38.0-38.9,adult (Z68.38) Active confirmed Problem Essential hypertension (08899986) Hypertension, essential (I10) Active confirmed Plan Of Treatment No Information Insurance Providers Payer Name Payer Address Payer Phone Subscriber Number Group Number Insured Name Patient Relationship to Insured Coverage Start Date Coverage End Date [facility] [address] [place] [address] [phone] [id number] Colt Tse Self - patient is the insured 2 Medical (General) History Medical History History ICD Code high blood pressure diabetes mellitus kidney stones
== END 2025-02-07 12:03 | disposition home or self-care (01) ==
LOC: HO.HUSH 11:25
PROVIDERS: PCP Internal Medicine; Visit Provider Urology
DX: E11.69 Type 2 diabetes mellitus with other specified complication (principal); N52.1 Erectile dysfunction due to diseases classified elsewhere; N32.89 Other specified disorders of bladder; N32.81 Overactive bladder
CPT/HCPCS: 99213

== ENCOUNTER → 2025-02-07 11:25 | Outpatient (BNVA) | payer BC, SELFPAY | PROVIDERS: PCP Internal Medicine; Visit Provider Urology | DX: Z13.89 Encounter for screening for other disorder (principal) ==

== ENCOUNTER 2025-07-25 15:54 | Outpatient (REF) | payer BC, SELFPAY ==
--- NOTE | ~2025-07-25 | US_ITS ---
EXAMINATION: US RETROPERITONEAL LIMITED (RENAL ONLY) CLINICAL INFORMATION: Calculus of kidneys. COMPARISON: None available. TECHNIQUE: Retroperitoneal ultrasound imaging of kidneys is performed. FINDINGS: RIGHT KIDNEY: 13.1 x 6.3 x 4.7 cm (SAG x AP x TRV). The kidney is normal in size, lobulated contour, and echogenicity. The cortical thickness is normal. Its small junctional parenchymal defect is seen. No calculi or focal parenchymal lesions. No hydronephrosis. LEFT KIDNEY: 14.5 x 4.7 x 3.9 cm (SAG x AP x TRV). The kidney is normal in size, contour, and echogenicity. Renal cortical thickness is normal. No calculi or focal parenchymal lesions. No hydronephrosis. US/US renal BI IMPRESSION: Slightly lobulated right renal cortex with junctional parenchymal defect seen.. No echogenic calculi or hydronephrosis. Electronically signed by: Rafi Lopez MD 07/28/2025 07:06 AM EST
== END 2025-07-25 15:55 | disposition home or self-care (01) ==
LOC: HO.US 15:54
PROVIDERS: PCP Internal Medicine; Visit Provider Urology
DX: N20.0 Calculus of kidney (principal)
CPT/HCPCS: 76775

== ENCOUNTER → 2025-07-25 15:56 | Outpatient (BNV) | payer BC, SELFPAY | PROVIDERS: PCP Internal Medicine; Visit Provider Radiology Diagnostic Radiology | DX: N20.0 Calculus of kidney (principal) | CPT/HCPCS: 76775 ==

== ENCOUNTER 2025-08-05 14:39 | Outpatient (AMB) | payer BC, SELFPAY ==
--- OUTSIDE RECORDS SUMMARY | 2024-02-23 06:00 | XMS_ITS ---
Author Organization [facility] [address] Address [address] [place] [address] Care Team Providers Care Ground Crew Chief Name Role Phone CRISTIN RAMIREZ Unavailable SHUKRI WINCHESTER Unavailable [phone] Encounters Encounter Location Date Provider Diagnosis [facility] [address] [place] [address] 02/23/2024 SHUKRI WINCHSETER Plan Of Treatment No Information Progress Notes * Ravi ALBAOB:1960 ([age] yo M)Acc No.[id number]:02/23/2024 Patient: Colt Moncada Provider: Sterling WINCHESTER PA-C :1960 A ge:63 Y S ex:Male Date:02/23/2024 Address:[address] [place], [place] [id number] * Electronic signature of ANDRZEJ WINCHESTER PA-C on 08/05/2025 at 06:28 PM EST Sign off status: Pending * Provider: Sterling WINCHESTER PA-C Date: 0 02/23/2024 Generated for Madhu carlisle/Dmitry/eTransmitting on: 1 10/05/2024 06:28 PM EST
--- NOTE | 2025-08-05 14:51 | MHC.OFFVIS ---
Intake Visit Reasons: 6m/US/UA/PVR Intake Note: Patient is present for 6 mo follow up Urology Medication:TADALAFIL,MIRABEGRON Antibiotic Allergy:NONE Blood Thinner:NONE Imaging : Renal Ultrasound 07/25/25 [employer]ger Required: No Accompanied by: Self / Same As Patient Allergies No Known Allergies (No Known Allergies*) Allergy (Verified 08/05/25 15:03) HPI Comments Details: Colt ALBA is a very pleasant male. He is a patient of Dr Martin?. He is seen in the office today for the following urologic conditions. - nephrolithiasis - erectile dysfunction - lower urinary tract symptoms Six-month follow-up No stone seen on recent ultrasound Continue good response to daily Cialis and Myrbetriq for bladder instability Background diabetes Needs PSA and testosterone check ?He has a complicated medical history. ?March 2013 underwent left hydrocele repair. Bladder was inadvertently incised. Spent the next 6-8 weeks with infection and bladder repair. Left inguinal hernia repair Lower urinary tract symptoms Urinary hesitancy with dribbling Component of bladder instability with urinary urgency and frequency Mild improvement with Toviaz Erectile dysfunction Responsive to 5 mg daily tadalafil Nephrolithiasis/Urolithiasis:? They are here for?further evaluation of nephrolithiasis.? Urolithiasis was diagnosed?02/05/18 - seen at [facility] [place] pain and heamturia - imaging had passed small stone.? The patient previously had kidney stones whose composition w?unknown ? 24 Hour urine evaluation?03/28 , Good Volume > 2.00 L, Hypercalciuria (> 200mg), High Sodium (> 100mEq), High oxalate > 30mg, High Citrate, Low urine pH < 5.5 ?03/29 , Good Volume > 2.00 L, high calcium and high oxalate - drinking iced tea ? Prior treatment(s) include?observation.? Prior imaging includes?01/26 , a CT (computed tomography) scan of the abdomen/pelvis (stone protocol), showing no evidence of stones - recent passage ?03/28 , a renal ultrasound, showing no evidence of stones - 07/02 renal ultrasound no stones, 08/03 no stones - 08/05 renal ultrasound no stone seen ? Current therapeutic plan will be?Multiple urinary abnormalities ?, to continue with imaging surveillance, ?General advice to maintain good fluid intake for urine greater than 1.5 L per day, reduce salt and reduce protein and acid loads was provided [facility] Medical History High cholesterol HTN (hypertension) Diabetes mellitus Erectile dysfunction due to diseases classified elsewhere Hypercalciuria Incomplete emptying of bladder Retrograde ejaculation Nontraumatic rupture of bladder Ureteral reimplantation hemorrhage Hydrocele in adult Hematuria Surgical History History of surgery Review of Systems Const Denies chills and Denies fever(s) Card Reports no additional complaints and Denies syncope Resp Denies cough GI Denies abdominal pain and Denies heartburn Reports as per HPI and Denies change in libido Neuro Denies syncope Psych Denies change in libido Endo Denies change in libido Physical Exam Const General: cooperative, healthy appearing, comfortable and no acute distress Orientation/consciousness: patient oriented x3 HEENT Face and sinus: Yes normal facial exam Mouth: moist mucous membranes Neck Neck: Yes normal visual inspection, Yes full ROM and Yes trachea midline Chest Chest palpation & inspection: normal inspection of the chest Resp Effort & Inspection: normal respiratory effort, able to speak in complete sentences and no respiratory distress GI Inspection: Yes normal to inspection Back/Spine/Pelvis Cervical Spine: normal cervical lordosis Thoracic/Lumbar Spine: thoracic and lumbar spine normal to inspection Skin General skin exam: no rashes or lesions noted Neuro General: patient oriented x3, gait normal, tone normal and moves all extremities Extrem General: Yes normal to inspection and Yes capillary refill normal Office Procedures Post Void Residual Post Residual Void Post Void Residual (PVR): 26 [id number]-[id number] Void Residual by ultrasound Results AMB Urinalysis, Automated UA Leukoctes 70 Billie/uL Last Edit by ELIZABET Dennis on 08/05/25 15:04 UA Nitrite Negative Last Edit by ELIZABET Dennis on 08/05/25 15:04 UA Urobilinogen 0.2 mg/dL Last Edit by Parvin Colon, CCMA on 08/05/25 15:04 UA Protein 0 mg/dL Last Edit by Parvin Colon, CCMA on 08/05/25 15:04 UA pH 7.0 Last Edit by Parvin Colon, CCMA on 08/05/25 15:04 UA Blood 0 Mark/uL Last Edit by Parvin Colon, CCMA on 08/05/25 15:04 UA Specific Marble 1.010 Last Edit by Parvin Colon, CCMA on 08/05/25 15:04 UA Ketone Negative Last Edit by Parvin Colon, CCMA on 08/05/25 15:04 UA Bilirubin 0 mg/dL Last Edit by [facility] on 08/05/25 15:04 UA Glucose 0 mg/dL Last Edit by Parvin Colon, [facility] on 08/05/25 15:04 Results Reviewed Results Reviewed: Laboratory Last Values Urine pH (Auto) 7.0 08/05/25 15:03 Specific Marble (Auto) 1.010 08/05/25 15:03 Urine Protein (Auto) 0 mg/dL 08/05/25 15:03 Glucose (UA)(Auto) 0 mg/dL 08/05/25 15:03 Urine Ketones (Auto) Negative 08/05/25 15:03 Urine Blood (Auto) 0 Mark/uL 08/05/25 15:03 Urine Nitrite (Auto) Negative 08/05/25 15:03 Urine Bilirubin (Auto) 0 mg/dL 08/05/25 15:03 Urine Urobilinogen (Auto) 0.2 mg/dL 08/05/25 15:03 Leukocyte Esterase (Auto) 70 Billie/uL 08/05/25 15:03 Assessment & Plan Assessment & Plan (1) Bladder outlet obstruction: Code(s): N32.0 - Bladder-neck obstruction Category: Medical (2) Overactive bladder: Code(s): N32.81 - Overactive bladder Category: Medical (3) Erectile dysfunction associated with type 2 diabetes mellitus: Code(s): E11.69 - Type 2 diabetes mellitus with other specified complication; N52.1 - Erectile dysfunction due to diseases classified elsewhere Category: Medical (4) Nephrolithiasis: Code(s): N20.0 - Calculus of kidney Category: Medical Plan Three-month follow-up lab work Orders: Orders Testosterone, Free/Total Today E11.69 - Type 2 diabetes mellitus with other specified complication, N52.1 - Erectile dysfunction due to diseases classified elsewhere Prostate Specific Antigen Today E11.69 - Type 2 diabetes mellitus with other specified complication, N52.1 - Erectile dysfunction due to diseases classified elsewhere Medications: Refilled mirabegron ER (Myrbetriq) 25 mg PO DAILY 90 tabs 1RF 90 days N32.81 - Overactive bladder, N32.89 - Other specified disorders of bladder tadalafil (Cialis) 5 mg PO DAILY 90 tabs 1RF 90 days E11.69 - Type 2 diabetes mellitus with other specified complication, N52.1 - Erectile dysfunction due to diseases classified elsewhere Patient Instructions: This note is constructed using voice recognition software. While every effort has been made to ensure accuracy assistant professor of life sciences errors may have been included. Imaging studies, laboratory and physical exam results were discussed and reviewed in detail. No major barriers to patient understanding were identified. An opportunity to ask questions regarding the treatment plan was provided. All questions were answered. The patient expressed understanding and agreement with the above treatment plan. The patient is aware they should contact our office by phone for worsening of their current condition or the appearance of new urologic symptoms. Compliance is encouraged with any medications and followup testing that is ordered. It is a privilege to participate in the urologic care of your patient. If you have any questions or concerns regarding treatment for the above conditions, or other urologic issues, please do not hesitate to contact me. The office telephone contact is [phone]. Sincerely, Dr Martin Mckenzie MD, [facility] - Urology Compassionate Specialist Care for the Genitourinary System Coding Level of Care Code Complex visit Add On G2211 Diagnoses Bladder outlet obstruction N32.0 Overactive bladder N32.81 Erectile dysfunction associated with type 2 diabetes mellitus E11.69; N52.1 Nephrolithiasis N20.0 CPT Codes Post Residual Void - PVR CPT Code: 85260-Iehf Void Residual by ultrasound ([id number])
--- OUTSIDE RECORDS SUMMARY | 2025-08-05 18:28 | XMS_ITS | Patient Health Record ---
Author Organization [facility] [address] Address [address] [place] [address] Care Team Providers Care Access Control Specialist Name Role Phone CRISTIN RAMIREZ Unavailable Allergies No Known Allergies Reason For Referral No Information Medications Medication SIG (Take, Route, Frequency, Duration) Notes Start Date End Date Status Fish Oil Active Vitamin D3 50 MCG (1999) Tablet Chewable 2 tablets Orally Once a day Active Lisinopril 10 MG Tablet Oral; Duration: 90 Days Active Pravastatin Sodium 20 MG Tablet Oral; Duration: 90 Days Acti ve Tadalafil 5 MG Tablet TAKE ONE TABLET BY MOUTH EVERY DAY Oral; Duration: 90 Days PRN Active Mounjaro 5 MG/0.5ML Solution Pen-injector as directed Subcutaneous weekly Active Probiotic 250 MG Capsule as directed Orally Active Social History Tobacco Use: Social History Observation Description Date Details (start date - stop date) Current Smoker NA - NA Social History Drugs/Alcohol: Social Info Question Answer Notes Alcohol Screen (Audit-C) Did you have a drink containing alcohol in the past year? Yes Points 0 Interpretation Negative Tobacco Use: Social Info Question Answer Notes Tobacco Use/Smoking Are you a current smoker How often do you smoke cigarettes? every day How many cigarettes a day do you smoke? 21-30 Additional Details Category Social Info Options Details Drugs/Alcohol: Do you smoke marijuana? Ad mits Do you drink alcohol? 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 pack a day for 20 years Problems Problem Type SNOMED Code ICD Code Onset Dates Problem Status W/U Status Risk Notes Problem Type II diabetes mellitus without complication (357556420) Type 2 diabetes mellitus without complications (E11.9) Active confirmed Problem Obesity (592520840) Obesity (BMI 30-39.9) (E66.9) Active confirmed Problem Obese class II (382349349963658 ) BMI 37.0-37.9, adult (Z68.37) Active confirmed Problem Umbilical hernia (446338155) Umbilical hernia without mention of obstruction or gangrene (K42.9) Active confirmed Problem Obese class II (032243154295236 ) BMI 36.0-36.9,adult (Z68.36) Active confirmed Problem Obese class II (678709822236384 ) BMI 38.0-38.9,adult (Z68.38) Active confirmed Problem Essential hypertension (12794294) Hypertension, essential (I10) Active confirmed Plan Of Treatment No Information Insurance Providers Payer Name Payer Address Payer Phone Subscriber Number Group Number Insured Name Patient Relationship to Insured Coverage Start Date Coverage End Date [facility] [address] [place] [address] [phone] [id number] Colt Tse Self - patient is the insured 2 Medical (General) History Medical History History ICD Code high blood pressure diabetes mellitus kidney stones
--- OUTSIDE RECORDS SUMMARY | 2025-08-05 18:28 | XMS_ITS | Clinical Summary ---
Author Organization [place] [address] Jan Formerly [facility] Building Address [address], [place] Phone Care Team Providers Care Facilities Specialist Name Role Phone Jesenia Mccormick MD Primary Care Provider [phone] Allergies No known active allergies Medications alcohol swabs pads, medicated 1 Units by Does not apply route 2 Times Daily. 11/27/2019 Active blood-glucose meter (ONETOUCH ULTRAMINI MISC) Check sugar twice daily 04/30/2014 Active miscellaneous medical supply misc CPAP by Nasal route at bedtime. BHIR-BIPAP pressure 15/10 Active MAGNESIUM CHLORIDE ORAL at bedtime. Acti ve CYANOCOBALAMIN, VITAMIN B-12, ORAL Take by mouth. Active ONETOUCH ULTRASOFT LANCETS MISC Use to check blood sugar twice a day 03/02/2021 Active cholecalciferol (VITAMIN D-3) 50 mcg (2,000 unit) capsule at bedtime. 09/17/2021 Act migue tadalafiL (CIALIS) 5 mg tablet Take 1 tablet (5 mg total) by mouth 1 (one) time each day. 11/30/2020 Active OneTouch Ultra Test test strip USE 1 STRIP TO CHECK BLOOD SUGAR TWICE A DAY 100 strip 11/14/2024 Active mirabegron (MYRBETRIQ) 25 mg 24 hr tablet Take 1 tablet (25 mg total) by mouth 1 (one) time each day. 11/05/2024 Active pravastatin (PRAVACHOL) 20 mg tablet TAKE ONE TABLET BY MOUTH ONE TIME EACH DAY. 90 tablet 1 01/27/2025 Active lisinopriL (PRINIVIL,ZESTR IL) 10 mg tablet TAKE ONE TABLET BY MOUTH DAILY 90 tablet 1 03/07/2025 Active Mounjaro 7.5 mg/0.5 mL injection INJECT 7.5MG INTO THE SKIN ONCE A WEEK 2 mL 4 05/26/2025 Active Active Problems Problem Noted Date Diagnosed Date Ventral hernia without obstruction or gangrene 0 12/17/2024 Microalbuminuria 04/10/2020 Obstructive sleep apnea syndrome 10/24/2017 Type II diabetes mellitus wi th renal manifestations ([facility] V24, [facility] V28) 12/12/2007 Overview (07/09/2024): Last Assessment & Plan: [...] to monitor. Morbid obesity with BMI of 4 0.0-44.9, adult ([facility] V24, [facility] [place]28) 10/05/2005 Resolved Problems Problem Noted Date Diagnosed Date Resolved Date Helicobacter pylori stool test positive 07/27/2018 02/28/2025 Umbilical hernia 09/26/2017 02/28/2025 Hydrocele, left 03/20/2013 02/28/2025 Encounters Date Type Department Care Team Description 05/26/2025 3:00 PM EDT Office Visit Orthopedic Surgery - [place] [address] [facility] [address] [place] [phone] Chris Hunt DPM Controlled type 2 diabetes with neuropathy ([facility] V24, [facility] V28) (Primary Dx); Difficulty walking; Arthritis of both feet; Capsulitis of left foot 05/09/2025 3:10 PM EDT Office Visit Gastroenterology [facility] [address] [facility] [address] [place] [phone] Pretty Rojas MD Lower abdominal pain from Last 3 Months Immunizations Immunization Administration Dates Next Due Pneumococcal conjugate 20 va lent (Prevnar 20, PCV 20) 2mo and older 11/15/2024 Pneumococcal polysaccharide 23 valent (Pneumovax 23) 2yo and older 11/30/2010 Td Tetanus diptheria (Tdvax) 7yo and older 05/08 Tdap Tetanus diptheria acell ular pertussis (Boostrix; Adacel) 7yo and older 12/12/2007 Surgical History Surgery Date Site/Laterality Comments COLONOSCOPY 2012 PROCEDURE: [place] COLONOSCOPY FLX DX W/COLLJ SPEC WHEN PFRMD; COMMENT: normal OTHER SURGICAL HISTORY 11/12/14 Dr Hayward Left PROCEDURE: KS EXC HYDROCELE SPRMATIC CORD UNI SPX; COMMENT: complicated by hole in bladder HERNIA REPAIR 11/13/14 Left PROCEDURE: REPAIR INGUINAL HERNIA; COMMENT: Dr Godinez OTHER SURGICAL HISTORY 12/10/14 PROCEDURE: KS SLING OPERATION STRESS INCONTINENCE; COMMENT: Dr Hayward, then postop urosepsis CYSTOSCOPY 2016 PROCEDURE: KS CYSTOURETHROSCOPY Medical History Medical History Date Comments [...] stones 06/10/2022 DX:Hist ory of kidney stones Hypertension Hyperlipidemia Family History Medical History Relation Name Comments [...] Years Used Date Smoking Tobacco: Former Cigarettes 1 Q uit: 09/10/1998 Smokeless Tobacco: Never Tobacco Cessation:Counseling Given: Not Answered Alcohol Use Standard Drinks/Week Comments No 0 (1 standard drink = 0.6 oz pur e alcohol) Housing Instability Answer Date Recorde d Are you worried that in the next 2 months you may not have stable housing? No 11/14/2024 Food Access & Nutrition Answer Date Rec orded Do you have access to a vari ety of food including fruits and vegetables? Yes 11/14/2024 Access to Healthcare Answer Date Record ed Within the last 3 months, ho w many times did you visit the emergency department for your medical care? 0 11/14/2024 Health Literacy Answer Date Recorded How often do you need to hav e someone help you when you read instructions, pamphlets, or other written material from your doctor or pharmacy? Never 11/14/2024 Caregiver: How often do you need to have someone help you when you read instructions, pamphlets, or other written material from your doctor or pharmacy? Not on file 11/14/2024 Financial Risk Answer Date Recorded How hard is it for you to pa y for the very basics like food, housing, medical care, and air conditioning / heating? Patient declined 11/14/2024 Transportation Answer Date Recorded Has the lack of transportati on kept you from meetings, work, or from getting things needed for daily living? No Has the lack of transportati on kept you from medical appointments or from getting medications? No 11/14/2024 Social Isolation Answer Date Recorded How often do you feel lonely or isolated from th ose around you? Never 11/14/2024 Food Risk Answer Date Recorded Within the past 12 months we worried whether our food would run out before we got money to buy more. Never true 11/14/2024 Within the past 12 months th e food we bought just didn't last and we didn't have money to get more. Never true 11/14/2024 Dependent Care Answer Date Recorded Do you need help finding or paying for care for your loved ones. For example, child nutrition manager or elderly care for an older adult? No 11/14/2024 Education Answer Date Recorded Do you think completing more education or training, like finishing a GED, going to college, or learning a trade, would be helpful for you? No 11/14/2024 Employment and Income Answer Date Recor ded During the last four weeks, have you been actively looking for work? No 11/14/2024 Living Situation Answer Date Recorded What is your living situation? Unrecognized valu e 11/14/2024 Interpersonal Safety Answer Date Record ed Physical Abuse Unrecognized value 01/02/2025 Verbal Abuse Unrecognized value 01/02/2025 Sex and Gender Information Value Date Recorded Sex Assigned at Not on file Legal Sex Male 12:16 AM EST Gender Identity Not on file Sexual Orientation Not on file Obstetrics History Last Filed Vital Signs Vital Sign Reading Time Taken Comments Blood Pressure 142/82 05/09/2025 3:08 PM EDT Pulse 78 05/09/2025 3:08 PM EDT Temperature 36.7 C (98.1 F) 02/28/2025 3:49 PM EDT Respiratory Rate 20 01/02/2025 4:47 PM EDT Oxygen Saturation 96% 04/25/2025 1:41 PM EDT Inhaled Oxygen Concentration - - Weight 122 kg (269 lb) 05/09/2025 3:08 PM EDT Height 180.3 cm (5' 11 ) 05/09/2025 3:08 PM EDT Body Mass Index 37.52 05/09/2025 3:08 PM EDT Plan of Treatment Upcoming Encounters Date Type Department Care Team (Late st Contact Info) Description 08/29/2025 2:30 PM EST Office Visit Internal Medicine - [place] [address] [place] [phone] Ousmane Brandt NP [address] [place] [address] 09/25/2025 2:45 PM EST Office Visit Orthopedic Surgery - [place] [address] [facility] [address] [place] [phone] Chris Hunt DPM 175 [facility] [address] [place] [address] 10/24/2025 3:30 PM EST Office Visit Pulmonology - [place] [address] [facility] [address] [place] [phone] Verna Peterson MD [address] [place] [phone] Health Maintenance Due Date Last Done Comments Diabetes: Annual Foot Exam 1970 RSV Immunization Adult Patients (1 - Risk 50-74 years 1-dose series) 2010 Zoster Vaccines (1 of 2) 2010 HIV Screening 08/20/2022 COVID-19 Vaccine ( season) 2025 12/18/2020, 11/27/2020 Influenza Vaccine (#1) 2025 Diabetes: Annual Retina Eye Exam 06/28/2025 06/28/2024 Diabetes: Blood Sugar Control Test (HGBA1C) 08/30/2025 02/28/2025, 11/14/2024, 07/04/2024, Additional history exists Diabetes: Annual GFR (Glomerular Filtration Rate) 11/14/2025 11/14/2024, 08/12/2024, 07/04/2024, Additional history exists Hypertension/CHF/CAD Annual BMP Blood Test 11/14/2025 11/14/2024, 08/12/2024, 07/04/2024, Additional history exists Social Influencers of Health Screening 11/14/2025 11/14/2024 Diabetes: Annual Urine Albumin-Creatinine Ratio (uACR) 11/15/2025 11/15/2024, 10/31/2023 DTaP,Tdap,and Td Vaccines (3 - Td or Tdap) 05/08/2028 05/08/2018, 12/12/2007 Cholesterol Screening (Lipid Panel) 07/05/2029 07/05/2024, 07/05/2024 Colorectal Cancer Screening: Colonoscopy 01/11/2034 01/12/2024 Hepatitis C Screening Completed 07/19/2013 Depression Screening Completed 11/14/2024 Pneumococcal Vaccine: 50+ Years Completed 11/15/2024, 11/30/2010 HIB Vaccines Aged Out No longer eligi [...] age to complete this topic Meningococcal B Vaccine Aged Out No l onger eligible based on patient's age to complete this topic RSV Immunization Patients Under 20 months Aged Out No longer eligible based on patient's age to complete this topic Varicella Vaccines Aged Out No longer eligible based on patient's age to complete this topic Medical Devices Implanted Type Area Radiology Special Procedure Tech Device Identifier Shelf Expiration Date Model / Serial / Lot Mesh Surg [address]in [employer] [employer]f - Sn/A - [id number] Implanted:Qty: 1 on 01/02/2025 by Etienne Mercado DO at [facility] Surgical Mesh Sling Implants N/A: Abdomen CR BARD - DAVOL DIV [id number] 07/08/2026 [id number] / N/A / [id number] Procedures Procedure Name Priority Date/Time Associated Diagnosis Comments INJECTION TENDON OR LIGAMENT Routine 05/26/2025 3:00 PM EDT Capsulitis of left foot HEMOGLOBIN A1C Routine 02/28/2025 4:25 PM EDT Type 2 diabetes mellitus with other diabetic kidney complication, without long-term current use of insulin ([facility] V24, [facility] V28) MICROALBUMIN CREATININE URINE RATIO Routine 11/15/2024 1:03 PM EST Lower abdominal pain Type 2 diabetes mellitus with hyperglycemia, without long-term current use of insulin ([facility] V24, [facility] V28) BASIC METABOLIC PANEL Routine 11/14/2024 3:26 PM EST Type 2 diabetes mellitus with hyperglycemia, without long-term current use of insulin ([facility] V24, [facility] V28) LIPID PANEL Routine 07/05/2024 DIABETES EYE EXAM Routine 06/28/2024 COLONOSCOPY Routine 01/12/2024 HEPATITIS C SCREENING Routine 07/19/2013 from Last 3 Months or Most Recently Relevant to Health Maintenance Results * Injection tendon or ligament (05/26/2025 3:00 PM EDT) Narrative Chris Hunt DPM - 05/26/2025 3:00 PM EDT Chris Hunt DPM 05/26/2025 5:35 PM Injection tendon or ligament Indications: pain Details: 25 G needle Medications: 0.5 mL lidocaine (PF) 1 %; 40 mg triamcinolone acetonide 40 mg/mL Informed Consent: Laterality: Left us Chris Hunt DPM IN CLINIC/BEDSIDE ORDERABLE S Final Result * Hemoglobin A1c (02/28/2025 4:25 PM EDT) Hemoglobin A1C 6.2 <6.5 % LAB CHEMISTRY METHOD 03/02/2025 10:[address] [facility] Mean Bld Glu Estim. 131 mg/dL LAB CHEMISTRY METHOD 03/02/2025 10:[address] [facility] Blood Venous blood specimen / Unknown Venipuncture / Unknown 02/28/2025 4:25 PM EDT 02/28/2025 4:25 PM EDT us Guillermina Andrade NP LAB BLOOD ORDERABLES Final R esult [facility] [address] [place] [address], [place] [phone] * Microalbumin creatinine urine ratio (11/15/2024 1:03 PM EST) Creatinine, Urine 106.0 mg/dL LAB CHEMISTRY METHOD 11/15/2024 8:[address] [facility] Microalb, Ur 13.2 0.0 - 29.0 mg/L LAB CHEMISTRY METHOD 11/15/2024 8:[address] [facility] Microalb/Creat Ratio 12 <30 mg/g creat LAB CHEMISTRY METHOD 11/15/2024 8:[address] [facility] Urine Urine specimen obtained by clean catch procedure / Unknown Non-blood Collection / Unknown 11/15/2024 1:03 PM EST 11/15/2024 1:03 PM EST Rojas Martin MD LAB URINE ORDERABLES Agata l Result Performing Organization Address City/[facility]/ZIP Co de Phone Number [facility] [address] [place] [address], [place] [phone] * (ABNORMAL) Basic metabolic panel (11/14/2024 3:26 PM EST) Sodium 136 133 - 145 mmol/L LAB CHEMISTRY METHOD 11/14/2024 6:[address] [facility] Potassium 4.1 3.5 - 5.5 mmol/L LAB CHEMISTRY METHOD 11/14/2024 6:[address] [facility] Chloride 103 96 - 110 mmol/L LAB CHEMISTRY METHOD 11/14/2024 6:[address] [facility] CO2 26 21 - 32 mmol/L LAB CHEMISTRY METHOD 11/14/2024 6:[address] [facility] Anion Gap 7 3 - 11 LAB CHEMISTRY METHOD 11/14/2024 6:34 PM [facility] Glucose 88 70 - 100 mg/dL LAB CHEMISTRY METHOD 11/14/2024 6:34 PM [facility] BUN 13 5 - 25 mg/dL LAB CHEMISTRY METHOD 11/14/2024 6:34 PM [facility] Creatinine 0.65(L) 0.70 - 1.30 mg/dL LAB CHEMISTRY METHOD 11/14/2024 6:34 PM [facility] eGFR 105 >=60 mL/min/1. 73m2 LAB CHEMISTRY METHOD 11/14/2024 6:34 PM [facility] Comment:Calculation based on the Chronic Kidney Disease Epidemiology Collaboration (CKD-EPI) equation refit without adjustment for race. BUN/Creatinine Ratio 20.0 LAB CHEMISTRY METHOD 11/14/2024 6:34 PM [facility] Calcium 9.5 8.5 - 10.5 mg/dL LAB CHEMISTRY METHOD 11/14/2024 6:34 PM [facility] Blood Venous blood specimen / Unknown Venipuncture / Unknown 11/14/2024 3:26 PM EST 11/14/2024 3:26 PM EST Rojas Martin MD LAB BLOOD ORDERABLES Agata l Result [facility] [address] [place] [address], [place] [phone] * Lipid panel (07/05/2024) LDL/HDL Ratio 3 0 - 4 Triglycerides 112 0 - 150 mg/dL Cholesterol 169 0 - 200 mg/dL HDL 65 >=40 mg/dL LDL Cholesterol 82 0 - 100 mg/dL Blood Venous blood specimen / Unknown Hector Provider LAB BLOOD ORDERABLES Agata l Result * Hm Diabetes Eye Exam (06/28/2024) [facility] Diabetes: Annual Retina Eye Exam Abstracted [facility] Provider HEALTH MAINTENANCE Final Result * Colonoscopy (01/12/2024) [facility] Colonoscopy No Interpretation , Abstracted Anatomical Region Laterality Modality Other [facility] Provider HEALTH MAINTENANCE Final Result * Hepatitis C Screening (07/19/2013) [facility] Hepatitis C Screening Abstracted [facility] Provider HEALTH MAINTENANCE Final Result from Last 3 Months or Most Recently Relevant to Health Maintenance Insurance [facility] Advance Directives * Full Code - Default (Latest Code Status on File) Date Activated Date Inactivated Comments 01/02/2025 9:56 AM 01/02/2025 8:34 PM This is orde r is used when code status has not been discussed with the patient, or code status is otherwise unknown/unconfirmed To update the patient's code status, place a code status order. Do not modify or discontinue any currently active code status orders. Care Teams Facilities Specialist Relationship Specialty Start Date End Date Jesenia Mccormick MD [address] [place] [address] PCP - General Internal Medicine 07/18/25
== END 2025-08-05 15:27 | disposition home or self-care (01) ==
LOC: HO.HUSH 14:40
PROVIDERS: PCP Internal Medicine; Visit Provider Urology
DX: N32.0 Bladder-neck obstruction (principal); N32.81 Overactive bladder; E11.69 Type 2 diabetes mellitus with other specified complication; N52.1 Erectile dysfunction due to diseases classified elsewhere; N20.0 Calculus of kidney
CPT/HCPCS: 99214

== ENCOUNTER → 2025-08-05 14:39 | Outpatient (BNVA) | payer BC, SELFPAY | PROVIDERS: PCP Internal Medicine; Visit Provider Urology | DX: N20.0 Calculus of kidney (principal); N32.0 Bladder-neck obstruction; N32.81 Overactive bladder; E11.69 Type 2 diabetes mellitus with other specified complication; N52.1 Erectile dysfunction due to diseases classified elsewhere | CPT/HCPCS: 51798 ==